=== PATIENT | male | born 1960 | race Caucasian/White ===

== ENCOUNTER 2020-08-13 07:30 | Observation (INO) ==
[2020-08-13] MEDS ORDERED: SODIUM CHLORIDE 0.9% 1000ML 1,000 ML IV ONE (08:05)
[2020-08-13] MEDS ORDERED: OPTIRAY 320 125ml IV ONE (08:12)
[2020-08-13 08:13] LABS: Basophils # (auto) 0.01 K/uL (0-0.2); Basophils % (auto) 0.3 %; Eosinophils # (auto) 0.13 K/uL (0-0.5); Eosinophils % (auto) 3.7 %; Hematocrit (blood only) 41.4 % (42-52); Hemoglobin 14.3 g/dL (14.0-18.0); Lymphocytes # (auto) 1.41 K/uL (1.2-3.4); Lymphocytes % (auto) 39.7 %; Mean Corpuscular Hemoglobin 29.1 pg (25-34); Mean Corpuscular Hgb Conc 34.5 g/dL (32-36); Mean Corpuscular Volume 84.1 fL (80-100); Mean Platelet Volume 9.3 fL (7.4-10.4); Monocytes # (auto) 0.29 K/uL (0.11-0.59); Monocytes % (auto) 8.2 %; Neutrophils # (auto) 1.71 K/uL (1.4-6.5); Neutrophils % (auto) 48.1 %; Platelet Count 193 K/uL (130-400); RDW Coefficient of Variation 15.2 % (11.5-14.5); RDW Standard Deviation 46.8 fL (36.4-46.3); Red Blood Count 4.92 M/uL (4.7-6.1); White Blood Count 3.55 K/uL (4.8-10.8)
[2020-08-13 08:21] LABS: iSTAT Creatinine 0.9 mg/dl (0.6-1.3); iSTAT Hemoglobin 13.9 g/dl (14.0-18.0); iSTAT Ionized Calcium 1.25 mmol/l (1.12-1.32); iSTAT Potassium 3.9 mmol/L (3.3-5.0)
[2020-08-13 08:25] LABS: INR 1.1 (0.9-1.1); Partial Thromboplastin Ratio 1.2; Partial Thromboplastin Time 32.1 Seconds (21.0-31.0); Prothrombin Time 10.7 Seconds (9.0-12.0)
[2020-08-13 08:30] LABS: Alanine Aminotransferase 20 U/L (12-78); Albumin Level 3.6 gm/dl (3.4-5.0); Aspartate Aminotransferase 18 U/L (15-37); BUN Creatinine Ratio 16.2 (10-20); Blood Urea Nitrogen 15 mg/dl (7-18); Calcium 8.7 mg/dl (8.5-10.1); Carbon Dioxide 29 mmol/L (21-32); Chloride 108 mmol/L (98-107); Creatinine Clr Calc Pharmacy 86.9 ml/min; Est GFR (African American) 104.3; Glucose 126 mg/dl (70-99); Magnesium 2.2 mg/dl (1.8-2.4); Potassium 3.9 mmol/L (3.5-5.1); Sodium 141 mmol/L (136-145)
[2020-08-13 08:34] LABS: Albumin Globulin Ratio 1.2 (0.9-2); Alkaline Phosphatase 136 U/L (45-117); Bilirubin,Total 0.5 mg/dl (0.2-1); Globulin 3.1 gm/dl (2.5-4.0); Total Protein 6.7 gm/dl (6.4-8.2); Troponin I < 0.015 ng/ml (0-0.045)
--- NOTE | 2020-08-13 08:37 | CT Scan Report ---
CT head/brain wo con, CT angio head w con, CT angio neck with con CLINICAL HISTORY: 60 years-old Male with Stroke Like Symptoms. Acute strokelike symptoms TECHNIQUE: Multiple axial CT images of the head were obtained without contrast. CTA head and neck was also obtained following the intravenous administration of 120 mL Optiray 320. All measurements were obtained according to NASCET criteria. 3-D coronal and sagittal MIPS were obtained. A dose lowering t echnique was utilized adhering to the principles of ALARA. CT DOSE: 1230.07 mGy.cm COMPARISON: None. FINDINGS: CT HEAD: No acute intracranial hemorrhage, midline shift, intracranial mass, hydrocephalus, territorial ischem ia or abnormal extra-axial collection. Mild age-related involutional changes. Subcentimeter hypodense focus of the inferior left lentiform nucleus suggests prominent perivascular space. The calvarium is intact. The paranasal sinuses, mastoid air cells, and middle ear cavities are clear . CTA HEAD AND NECK: The imaged opacified pulmonary artery is unremarkable. Three-vessel morphology of the thoracic aortic arch. There is patency of the innominate, and imaged subclavian arteries. The common and internal ca rotid arteries are widely patent. No significant atherosclerotic plaque. The middle and anterior cere bral arteries are patent. Hypoplastic left A1 segment, likely developmental. Codominant and widely pa tent vertebral arteries. The basilar and posterior cerebral arteries are also widely patent. No aneur ysm, dissection, high-grade stenosis or proximal branch occlusion. Cerebral venous sinuses are patent . There is no abnormal intracranial enhancement. Lung apices are clear without pneumothorax. Mild bronchial wall thickening. There is no adenopathy. S treak artifact from dental amalgam hardware. Degenerative changes of the cervical spine and sternal m anubrial articulation. IMPRESSION: 1. No acute intracranial abnormality. 2. Unremarkable CTA of the head and neck. ACT 112: Negative or not required by law. The above report was generated using voice recognition software. It may contain grammatical, syntax o r spelling errors. Electronically signed by: Ervin York M.D. 08/13/2020 8:36 AM
--- NOTE | 2020-08-13 08:54 | XRay Report ---
XR chest 1V portable HISTORY: 60 years-old Male Stroke Like Symptoms acute strokelike symptoms COMPARISON: CTA head neck of same day TECHNIQUE: Portable AP view of the chest FINDINGS: Mild asymmetric left hilar prominence may be projectional. Cardiac silhouette is normal. There is no pneumothorax, pleural effusion, airspace consolidation or overt pulmonary edema. The bones of the morgan st appear grossly intact. IMPRESSION: No acute process. ACT 112: Negative or not required by law. The above report was generated using voice recognition software. It may contain grammatical, syntax o r spelling errors. Electronically signed by: Ervin York M.D. 08/13/2020 8:52 AM
[2020-08-13 09:53] LABS: Influenza A virus by PCR Negative (Neg); Influenza B virus by PCR Negative (Neg); RSV by PCR Negative (Neg); SARS CoV2 RNA(COVID-19) InHosp NEGATIVE (Negative)
[2020-08-13 10:14] LABS: Appearance Urine Clear (Clear); Bilirubin Urine Negative (Negative); Blood Urine Negative (Negative); Color Urine Yellow; Glucose Urine UA Negative (Negative); Ketones Urine Negative (Negative); Leukocyte Esterase Urine Negative (Negative); Nitrite Urine Negative (Negative); Protein Urine Negative (Negative); Specific Gravity Urine 1.011 (1.000-1.030); Urobilinogen Urine Negative (Negative); pH Urine 6.5 (4.5-7.5)
[2020-08-13 10:27] LABS: Base Excess VBG 2.2 mEq/L; pH VBG 7.38 (7.36-7.41)
[2020-08-13 10:30] LABS: Amphetamines+Metham, Urine Neg (Neg); Barbiturates, Urine Neg (Neg); Benzodiazepine, Urine Neg (Neg); Cocaine, Urine Neg (Neg); MDMA (Ecstacy), Urine Neg (Neg); Methadone, Urine Neg (Neg); Opiate, Urine Neg (Neg); Phencyclidine, Urine Neg (Neg)
[2020-08-13] MEDS ORDERED: ASPIRIN 81 MG ECTAB PO SCH (10:45)
--- NOTE | 2020-08-13 11:01 | History & Physical Report ---
Date of Service August 13, 2020 Assessment & Plan (1) Acute confusional state: Patient with acute confusion in the morning following night time headache. -DDX- CVA vs. TGA vs. Migraine - MRI brain pending - No history of seizures- will get EEG - Continue ASA - [facility] (2) Headache: Acute ? migraine - No ETOH abuse reported by patient or - Active person, has never had a debilitating headache before - Thiamine 200 mg PO QD - B12, TSH- ordered by neurology already. Thank you - Hydrate History of Present Illness Primary Care Provider: aMi North 60 YOM retired [employer], and is a professor in political sciences, who gets majority of his care at the [facility]. Was brought into the emergency department this morning by his , secondary to memory issues and "not making sense with his answers". Patient went to bed at 2200 last PM secondary to a headache that was located on the top of his head as a dull ache. The patient normally gets these headaches 1-2 times per year and they go away. He did not take anything for this headache except sleep. He got up in the morning and got the paper, and made himself breakfast. When he was going to sit at the table, the patient started asking the , what were all these things on the table and why were they there. She then proceeded to ask him who the president was and who oversaw the elections, he did not know the answers. She brought him to the emergency room where he had a stroke work up performed, to include NIHSS, CT of the head and CTA of the head and neck. These were unremarkable and his NIHSS is 0. The hospitalist service was notified for admission. Patient will be admitted for observation and continued stroke work up and differential. ECHO, neurology consulted. Patient is on no medications. He has a family history of CVA, NE, and aortic aneurysms. Allergies Allergy/AdvReac Type Severity Reaction Status Date / Time No Known Allergies Allergy Unverified 08/13/20 08:45 Home Medications Medication Instructions Recorded Confirmed Type No Known Home Medications 08/13/20 08/13/20 History lisinopril 10 mg PO QAM 30 Days #30 tab 08/14/20 Rx Past Med/Surg History Medical History Medical history non-contributory Family History Father , [place] at 56 and at 86 Coronary heart disease Diabetes Dyslipidemia Heart disease Hypertension Mother Diabetes Dyslipidemia Hypertension Stroke Social History Smoking Status: Never smoker Second Hand Exposure: No; Do You Dip or Chew Tobacco: No; Tobacco Cessation Education Requested by Patient: No Hx Alcohol Use: Yes Alcohol type: beer Hx Substance Use: No Preferred Language: Mohawk Communication Ability: Effective Sausage Tier Required: No Beliefs That Will Affect Care: None Current Living Situation: Spouse Other Information That Helps Us Care for You: No Feels Safe at Home: Yes Safety Concerns: Feels Safe At This Time Assistive Devices: None Review of Systems Review of Systems: REVIEW OF SYSTEMS: Constitutional: No fever, sweats or chills Eyes: No diplopia, no worsening or blurred vision ENT: normal hearing, no trouble swallowing Respiratory: No cough, sputum, dyspnea at rest or on exertion Cardiovascular: No chest pain, tightness or palpitations Abdomen: No pain, nausea, vomiting, diarrhea or constipation Musculoskeletal: No joint pain, calf pain, swelling Neurologic: No weakness, numbness/tingling, or balance problems Psychiatric: No anxiety or depression Skin: No rash or itch Physical Exam Physical Exam: PHYSICAL EXAM: General: awake, alert, no apparent distress Head: Normocephalic, atraumatic ENT: PERRL, EOMI, no pharyngeal exudate, mucous membranes moist Neuro: AAO x 3, speech clear and appropriate, strength intact bilaterally 5/5, sensation intact and equal all extremities and dermatones, no pronator drift Chest: equal rise and fall of the chest, no accessory muscle use, no heaves or thirlls, Clear to auscultation, on room air, Cardiac: Regular rate and rhythm, telelmetry reviewed, skin warm dry, cap refill <3 seconds, peripheral pusles +2 no JVD, no murmur, no JVD, no edema GI: NABS x 4 quadrants, soft, nontender to palpation, no rebound, guarding or tenderness : Spontaneously voiding, no pain, no CVA tenderness, Extremities: Normal inspection, no peripheral edema or erythema, calfs nontender to palpation Psych: Normal mood and affect cits Skin: no rash or erythema Results & Data Results & Data ([facility]) Vital Signs (Past 12 Hours) Vital Signs Temp Pulse Resp BP Pulse Ox 08/13/20 10:31 150/102 H 08/13/20 10:30 21 08/13/20 10:01 67 18 97 08/13/20 10:00 64 14 148/103 H 99 08/13/20 09:31 64 15 98 08/13/20 09:30 63 16 151/94 H 98 08/13/20 09:01 68 20 98 08/13/20 09:00 63 17 153/101 H 99 08/13/20 08:31 70 19 98 08/13/20 08:30 70 14 159/97 H 98 08/13/20 08:22 74 16 98 08/13/20 07:58 73 18 173/110 H 96 08/13/20 07:46 36.3 C L 72 20 164/100 H 99 Laboratory Results Abnormal lab results 08/13/20 08/13/20 08/13/20 Range/Units 08:05 08:05 08:05 WBC 3.55 L (4.8-10.8) K/uL POC Hgb (14.0-18.0) g/dl Hct 41.4 L (42-52) % POC Hct (42-52) % RDW Std Deviation 46.8 H (36.4-46.3) fL RDW Coeff of Manish 15.2 H (11.5-14.5) % APTT 32.1 H (21.0-31.0) Seconds Chloride 108 H (98-107) mmol/L POC Anion Gap (16-25) mmol/L Glucose 126 H (70-99) mg/dl POC Glucose (other) (70-99) mg/dl Alkaline Phosphatase 136 H (45-117) U/L 08/13/20 Range/Units 08:09 WBC (4.8-10.8) K/uL POC Hgb 13.9 L (14.0-18.0) g/dl Hct (42-52) % POC Hct 41 L (42-52) % RDW Std Deviation (36.4-46.3) fL RDW Coeff of Manish (11.5-14.5) % APTT (21.0-31.0) Seconds Chloride (98-107) mmol/L POC Anion Gap 15.0 L (16-25) mmol/L Glucose (70-99) mg/dl POC Glucose (other) 121 H (70-99) mg/dl Alkaline Phosphatase (45-117) U/L Diagnostic Findings XR chest 1V portable HISTORY: 60 years-old Male Stroke Like Symptoms acute strokelike symptoms COMPARISON: CTA head neck of same day TECHNIQUE: Portable AP view of the chest FINDINGS: Mild asymmetric left hilar prominence may be projectional. Cardiac silhouette is normal. There is no pneumothorax, pleural effusion, airspace consolidation or overt pulmonary edema. The bones of the chest appear grossly intact. IMPRESSION: No acute process. CT head/brain wo con, CT angio head w con, CT angio neck with con CLINICAL HISTORY: 60 years-old Male with Stroke Like Symptoms. Acute strokelike symptoms TECHNIQUE: Multiple axial CT images of the head were obtained without contrast. CTA head and neck was also obtained following the intravenous administration of 120 mL Optiray 320. All measurements were obtained according to NASCET criteria. 3-D coronal and sagittal MIPS were obtained. A dose lowering technique was utilized adhering to the principles of ALARA. CT DOSE: 1230.07 mGy.cm COMPARISON: None. FINDINGS: CT HEAD: No acute intracranial hemorrhage, midline shift, intracranial mass, hydrocephalus, territorial ischemia or abnormal extra-axial collection. Mild age-related involutional changes. Subcentimeter hypodense focus of the inferior left lentiform nucleus suggests prominent perivascular space. The calvarium is intact. The paranasal sinuses, mastoid air cells, and middle ear cavities are clear. CTA HEAD AND NECK: The imaged opacified pulmonary artery is unremarkable. Three-vessel morphology of the thoracic aortic arch. There is patency of the innominate, and imaged subclavian arteries. The common and internal carotid arteries are widely patent. No significant atherosclerotic plaque. The middle and anterior cerebral arteries are patent. Hypoplastic left A1 segment, likely developmental. Codominant and widely patent vertebral arteries. The basilar and posterior cerebral arteries are also widely patent. No aneurysm, dissection, high-grade stenosis or proximal branch occlusion. Cerebral venous sinuses are patent. There is no abnormal intracranial enhancement. Lung apices are clear without pneumothorax. Mild bronchial wall thickening. There is no adenopathy. Streak artifact from dental amalgam hardware. Degenerative changes of the cervical spine and sternal manubrial articulation. IMPRESSION: 1. No acute intracranial abnormality. 2. Unremarkable CTA of the head and neck. Medications Administered Discontinued Medications Sodium Chloride (Nss 1000ml) 1,000 mls @ 999 mls/hr IV .Q1H1M ONE Stop: 08/13/20 09:05 Last Infusion: 08/13/20 10:06 Dose: 0 mls/hr Documented by: [id number] Admin: 08/13/20 08:29 Dose: 999 mls/hr Documented by: [id number] Ioversol (Optiray 320 125ml) 120 ml IV ONCE ONE Stop: 08/13/20 08:13 Last Admin: 08/13/20 08:13 Dose: 120 ml Documented by: [id number] Additional Comments: Normal sinus rhythm Normal ECG No previous ECGs available Code Status & VTE Plan Code Status CODE: FULL VTE: Heparin 5000units subq TID VTE Prophylaxis Plan VTE Prophylaxis will be ordered: Yes Supervising Physician Co-Signing Physician Notes I personally saw and examined the patient. I verified all elder points and agree with Davis CHRISTIAN with the following exceptions and/or additions: 60-year-old male with no history of CVA presents to the ER with acute confusional state which has improved throughout the day. The patient was seen in the evening and is now currently back to his baseline.A/P O/E no focal neurology, no sensory deficits, no facial droop, alert and orientated and answering questions appropriately better than earlier in the day. A/P Acute confusional state -agree with completing stroke work-up. Suspect transient global amnesia. Appreciate neurology consult. If stable overnight can likely be discharged tomorrow. PG Care Time/CCT Total # of Minutes Spent Total Time Spent with Patient: Total time spent is greater than 50% in coordination of care (as documented) at patient's floor/unit and/or counseling patient: Coding Level of Care Code 02144 OBS Care - Level 3 Diagnoses Acute confusional state F05 Headache R51.9 Headache chronicity pattern: acute headache Headache type: unspecified Intractability: not intractable (1) Headache Headache chronicity pattern: acute headache Headache type: unspecified Intractability: not intractable Qualified Code(s): R51.9 - Headache, unspecified
[2020-08-13] MEDS ORDERED: ASPIRIN 81 MG CHEW PO ONE (12:35)
[2020-08-13] MEDS ORDERED: ONDANSETRON INJ 2 MG/ML 2 ML VIAL IV PRN (12:35)
[2020-08-13] MEDS ORDERED: POLYETHYLENE (MIRALAX) 17 GM PACK PO PRN (12:35)
[2020-08-13] MEDS ORDERED: PHARMACIST DISCHARGE MED REC CONSULT PRN (12:35)
--- NOTE | 2020-08-13 14:42 | Neurology Consultation ---
Date of Consultation August 13, 2020 Assessment & Plan (1) Acute confusional state: Prasanth Marvin is a 60 yo man w/ no known significant PMH who p/t [facility] with acute onset of confusion and headache. # Acute confusional episode: suggestive of TGA vs HTNsive urgency, less likely NCSE as no abnormality on MRI brain or h/o seizures, no stroke on imaging. Suspect that he may have been on the border between HTNsive urgency and PRES. - routine EEG to complete workup - would give banana bag given unclear history - will check B12, thiamine, TSH (ordered) - [facility] for records from the [place] - would give IVFs, IV tylenol/zofran q8h scheduled for headache x2 doses - SBP goal <160 (would give prn captopril to meet goal and consider starting anti-HTNsive if still high during admission) Thank you for this interesting consult. Plan of care discussed with primary team. Please call or text with questions. (2) Headache: History of Present Illness Attending Physician: Prakash Hannah MD History of Present Illness Prasanth Marvin is a 60 yo man w/ no known significant PMH who p/t [facility] with acute onset of confusion and headache. [employer] the morning of 08/13/20. In the ED, BP 164/100, HR 72, patient afebrile, RR 18, satting 96% on room air. Labs notable for WBCs 3.55, hemoglobin 14.3 with MCV 84.1, platelets 193, INR 1.1, VBG 7.3 8/49/30/28, sodium 141, potassium 3.9, glucose 126, calcium 8.7, phosphorus 3, magnesium 2.2, LFTs within normal except for mildly elevated alkaline phosphatase 136, troponin negative, UA no infection, UDS negative, CO VID negative. Imaging independently reviewed. CTH shows no hemorrhage or hypodensity. CTA H&N shows no LVO, high grade stenosis or aneurysm. MRI brain shows no acute or chronic infarct, tumor, mass lesion or significant atrophy. CXR no infection. On examination, he reports that he went to bed last night around 10 PM in his normal state of health and then woke up this morning around 3:30 AM with a mild headache. Notes that he was making things for breakfast but his thought he was doing odd things. He notes that his asked several questions he answered incorrectly or inappropriately. He denies any loss of consciousness but does note mild amnestic symptoms to the morning. Did have a headache until recently when he was given medication for it. Denies any other neurological symptoms including numbness, tingling, weakness, visual, speech abnormalities, facial droop or seizure-like activity including staring/automatisms/generalized convulsions. He reports that he usually has normal blood pressure and that when told for his blood pressure was this morning it was exceptionally high for him. He does not take any medications regularly or had any underlying health conditions aside from borderline hypertension. Allergies Allergy/AdvReac Type Severity Reaction Status Date / Time No Known Allergies Allergy Unverified 08/13/20 08:45 Home Medications Medication Instructions Recorded Confirmed Type No Known Home Medications 08/13/20 08/13/20 History Patient History Medical History Medical history non-contributory Family History Father , [place] at 56 and at 86 Coronary heart disease Diabetes Dyslipidemia Heart disease Hypertension Mother Diabetes Dyslipidemia Hypertension Stroke Social History Smoking Status: Never smoker Second Hand Exposure: No; Do You Dip or Chew Tobacco: No; Tobacco Cessation Education Requested by Patient: No Hx Alcohol Use: Yes Alcohol type: beer Hx Substance Use: No Preferred Language: Nauruan Communication Ability: Effective Slurry Man Required: No Beliefs That Will Affect Care: None Current Living Situation: Spouse Other Information That Helps Us Care for You: No Feels Safe at Home: Yes Safety Concerns: Feels Safe At This Time Assistive Devices: None Review of Systems Review of Systems: 14 point review of systems completed and negative except as in HPI. Exam (Neuro) Physical Exam: General Exam: GEN: NAD, lying down in examination bed. HEENT: No conjunctival injection, no rhinorrhea. CV: RRR on monitor, no significant edema. PULM: Nonlabored respirations on room air. Neuro Exam: MS: Awake and Alert. Oriented to person, place, and date. Speech fluent and appropriate without dysarthria or paraphasic errors. Language intact including naming, comprehension, repetition. Cognition and memory grossly intact. Attention intact. No neglect. CN: Visual gerber full, + blink to threat bilaterally. No extinction to double simultaneous stimuli. Unable to visualize fundi on fundoscopic exam. PERRLA OU. EOMI without nystagmus. Facial sensation intact to LT. Facial muscles full and symmetric. Hearing intact to finger rub bilaterally. Uvula midline with symmetric palatal elevation. SCMs and shoulder shrug normal. Tongue midline. MOTOR: Normal bulk and tone. No pronator drift. BUE strength 5/5 at deltoids, biceps, triceps, wrist flexors and extensors, and finger flexors bilaterally. BLE strength 5/5 at iliopsoas, hamstrings, quadriceps, tibialis anterior, and gastrocnemius bilaterally. REFLEXES: 1+ at biceps, triceps, brachioradialis, 1+ patella, and Achilles bilaterally. Flexor plantar responses bilaterally. SENSORY: Intact to LT throughout, no extinction to double simultaneous stimuli. Vibration mildly diminished in bilateral lower extremities up to the knees. COORDINATION: No dysmetria or ataxia on [id number] bilaterally. Normal Dionne bilaterally. GAIT: Deferred due to physical status. NIH STROKE SCALE 1A. Level of Consciousness (0-3) = 0 1B. LOC Questions (0-2) = 0 1C. LOC Commands (0-2) = 0 2. Best Horizontal Gaze (0-2) = 0 3. Visual Gerber (0-3) = 0 4. Facial Palsy (0-3) = 0 5. Motor Arm Right (0-4) = 0 Left (0-4) = 0 6. Motor Leg Right (0-4) = 0 Left (0-4) = 0 7. Limb Ataxia (0-2) = 0 8. Sensory (0-2) = 0 9. Best Language (0-3) = 0 10. Dysarthria (0-2) = 0 11. Extinction and Inattention (0-2) = 0 NIHSS TOTAL = 0 Results & Data ([facility]) Vital Signs (Past 12 Hours) Vital Signs Temp Pulse Pulse Resp BP BP Pulse Ox 08/13/20 12:51 36.9 C 61 18 136/87 96 08/13/20 12:30 36.9 C 136/87 08/13/20 11:01 21 08/13/20 11:00 18 141/94 H 08/13/20 10:32 16 08/13/20 10:31 150/102 H 08/13/20 10:30 21 08/13/20 10:01 67 18 97 08/13/20 10:00 64 14 148/103 H 99 08/13/20 09:31 64 15 98 08/13/20 09:30 63 16 151/94 H 98 08/13/20 09:01 68 20 98 08/13/20 09:00 63 17 153/101 H 99 08/13/20 08:31 70 19 98 08/13/20 08:30 70 14 159/97 H 98 08/13/20 08:22 74 16 98 08/13/20 07:58 73 18 173/110 H 96 08/13/20 07:46 36.3 C L 72 20 164/100 H 99 PG Care Time/CCT Total # of Minutes Spent Total Time Spent with Patient: Total time spent is greater than 50% in coordination of care (as documented) at patient's floor/unit and/or counseling patient: 60 Coding Level of Care Code 34304 Office/Outpt Visit, New Diagnoses Acute confusional state F05 Headache R51.9
--- NOTE | 2020-08-13 15:22 | Magnetic Resonance Report ---
MRI OF THE BRAIN WITHOUT IV CONTRAST CLINICAL HISTORY: Strokelike symptoms. Confusion. Headache. COMPARISON STUDY: CT of the brain dated 08/13/2020. TECHNIQUE: MRI of the brain was performed utilizing various T1 and T2-weighted sequences in the axial , sagittal, and coronal planes. IV contrast was not administered for this examination. FINDINGS: Brain parenchyma: The brain parenchyma is normal in appearance. There is no hemorrhage or mass effect . There is no restricted diffusion to suggest acute ischemia. Gutiérrez-white matter differentiation is pr eserved. No extra-axial fluid collection is seen. A prominent perivascular space is incidentally note d in the left basal ganglia. The cerebellar tonsils are normal in configuration. Ventricles, sulci, and cisterns: Normal in configuration. Pituitary and sella: Unremarkable. Intracranial vasculature: Normal flow voids are maintained at the skull base. Orbits: The bony orbits are grossly intact. Orbital contents are normal in appearance. Sinuses and mastoids: Clear. Calvarium: Unremarkable. Cervical cord: Partially visualized cervical spinal cord is normal in morphology and signal intensity . IMPRESSION: No acute intracranial abnormality. ACT 112: Negative or not required by law. Electronically signed by: Ameya Hernandez M.D. 08/13/2020 3:21 PM
--- NOTE | 2020-08-13 16:18 | XCELERA ---
[id number]
[2020-08-13] MEDS ORDERED: ONDANSETRON 4 MG OD TAB PO PRN (17:08)
[2020-08-13] MEDS ORDERED: ACETAMINOPHEN 325 MG TAB PO PRN (17:08)
[2020-08-13] MEDS ORDERED: THIAMINE HCL 100 MG TAB PO ONE (17:14)
--- NOTE | 2020-08-13 17:53 | Emergency Department Note ---
Impression & Plan Stroke-like symptom, Acute confusional state, Headache, Hypertensive urgency ED Provider Note NAME: JIGAR HALL AGE: 60 SEX: M ARRIVES VIA: Walk-In INFORMANT: Patient, ED PROVIDER(S): Jose E Manuel MD CHIEF COMPLAINT: Confusion, stroke-like symptoms. 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 Otherwise they deny any fevers, chills, cough, congestion, GI or symptoms. They deny known COVID-19 exposures. He denies any similar symptoms in the past. No history headaches. The patient is a professor of politics and so the fact that he is unable to name the current present or even the prior president, per the , is very abnormal. They deny any new acute stress in their lives at this time. Stroke alert was activated upon evaluation given the patient's symptoms impact his livelihood however large vessel occlusion was not thought to be likely and telestroke consultation was deferred once CTA results were seen to be normal. On arrival the patient is no acute distress, afebrile, hypertensive 160- 170s/100s and otherwise stable vital signs. Other than mild confusion per HPI he has no focal neurologic deficits. CNII-XII grossly intact. No overt aphasia or dysarthria. 5/5 strength and SILT x 4 extremities. Cerebellar function intact including [id number], alternating palms, [id number]. EKG without overt acute ischemia. CXR negative for acute cardiopulmonary process. WBC 3.5, nonspecific. Hemoglobin and platelets within normal limits. Chemistry without metabolic acidosis. Electrolytes and LFTs unremarkable. Troponin negative/undetectable. TSH within normal limits. UA without convincing evidence of infection. COVID-19 PCR negative. Influenza and RSV PCR also negative. CT of the head and CTA of the head and neck were negative for ICH, ischemia or severe narrowing or occlusion of large vessels. Given the patient's acute mental status changes that are significantly different from the patient's baseline reasonable to admit the patient for further stroke evaluation. The patient and his at the bedside are in agreement. Case was d/w DANIA Lovelace hospitalist who will evaluate the patient for admission. Triage Nursing notes reviewed and agree them. Prior medical records reviewed Vital Signs: reviewed and remarkable for hypertension. Differential diagnosis: Infection, dehydration, metabolic abnormality, hypo/hyperglycemia, electrolyte disturbance, anemia, hypoxia, cardiac sources, intracerebral event, toxicologic, neurologic, as well as other pathologies. ER treatment provided: See below. Diagnostics interpreted by me: ECG: NSR, 67 bpm, no ectopy, no overt ST elevation or depression. Cardiac Monitoring: An order for continuous cardiac monitoring was placed and demonstrated NSR, 67 bpm, no ectopy. Laboratory studies: See below Imaging studies: See below Consultation(s): Case was d/w DANIA Lovelace hospitalist who will evaluate the patient for admission. 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 Otherwise they deny any fevers, chills, cough, congestion, GI or symptoms. They deny known COVID-19 exposures. He denies any similar symptoms in the past. No history headaches. The patient is a professor of politics and so the fact that he is unable to name the current present or even the prior president, per the , is very abnormal. They deny any new acute stress in their lives at this time. Stroke alert was activated upon evaluation given the patient's symptoms impact his livelihood however large vessel occlusion was not thought to be likely and telestroke consultation was deferred once CTA results were seen to be normal. ROS: See above HPI for pertinent positives & negatives. A total of 10 systems reviewed and were otherwise negative. PAST MEDICAL HISTORY:See Below PAST SURGICAL HISTORY:See Below FAMILY HISTORY:See Below SOCIAL HISTORY:See Below HOME MEDICATIONS:See Below ALLERGIES:See Below VITALS:See Below PHYSICAL EXAMINATION: GENERAL: Awake, alert, well-appearing, in no distress HENT: Normocephalic, atraumatic. Oropharynx with dry mucous membranes and othe rwise unremarkable. EYES: Normal conjunctiva. Sclera non-icteric. EOMI. No nystamgus. PEARRL. NECK: Supple. No nuchal rigidity. FROM. No JVD. RESPIRATORY: Clear to auscultation. CARDIAC: Regular rate, normal rhythm. Extremities warm and well perfused. Pulses equal. ABDOMEN: Soft, non-distended. No tenderness to palpation. No rebound or guarding. No masses. RECTAL: Deferred. MUSCULOSKELETAL: Chest examination reveals no tenderness. The back is symmetrical on inspection without obvious abnormality. There is no CVA tenderness to palpation. No joint edema. LOWER EXTREMITIES: Calves are equal size bilaterally and non-tender. No edema. No discoloration. NEURO: CNII-XII grossly intact. No overt aphasia or dysarthria. 5/5 strength and SILT x 4 extremities. Cerebellar function intact including [id number], alternating palms, [id number]. SKIN: No rash or jaundice noted. 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 Beliefs That Will Affect Care: None Current Living Situation: Spouse Other Information That Helps Us Care for You: No Feels Safe at Home: Yes Safety Concerns: Feels Safe At This Time Assistive Devices: None Allergies Allergies Allergy/AdvReac Type Severity Reaction Status Date / Time No Known Allergies Allergy Unverified 08/13/20 08:45 Home Meds Home Medications Medication Instructions Recorded Confirmed No Known Home Medications 08/13/20 08/13/20 Results & Data (ED) Vital Signs Vital Signs - 24 hr 08/13/20 07:46 08/13/20 07:58 08/13/20 08:22 Temperature 36.3 C L Temperature Source Skin Pulse Rate 72 73 74 Pulse Rate from SpO2 Sensor 74 74 Respiratory Rate 20 18 16 Respiratory Effort / Characteristics Non-Labored Spontaneous Respiratory Depth Normal Respiratory Pattern Regular Blood Pressure 164/100 H 173/110 H Blood Pressure Mean 121 131 Pulse Oximetry 99 96 98 Oxygen Delivery Method Room Air Sepsis Recent Fever Within 48 Hours No Sepsis New/Unexplained Change in Mental Status N/A Sepsis Action Taken by Nursing No Action Required 08/13/20 08:30 08/13/20 08:31 08/13/20 09:00 Temperature Temperature Source Pulse Rate 70 70 63 Pulse Rate from SpO2 Sensor 70 69 63 Respiratory Rate 14 19 17 Respiratory Effort / Characteristics Respiratory Depth Respiratory Pattern Blood Pressure 159/97 H 153/101 H Blood Pressure Mean 117 118 Pulse Oximetry 98 98 99 Oxygen Delivery Method Sepsis Recent Fever Within 48 Hours Sepsis New/Unexplained Change in Mental Status Sepsis Action Taken by Nursing 08/13/20 09:01 08/13/20 09:30 08/13/20 09:31 Temperature Temperature Source Pulse Rate 68 63 64 Pulse Rate from SpO2 Sensor 70 64 64 Respiratory Rate 20 16 15 Respiratory Effort / Characteristics Respiratory Depth Respiratory Pattern Blood Pressure 151/94 H Blood Pressure Mean 113 Pulse Oximetry 98 98 98 Oxygen Delivery Method Sepsis Recent Fever Within 48 Hours Sepsis New/Unexplained Change in Mental Status Sepsis Action Taken by Nursing 08/13/20 10:00 08/13/20 10:01 08/13/20 10:30 Temperature Temperature Source Pulse Rate 64 67 Pulse Rate from SpO2 Sensor 65 66 Respiratory Rate 14 18 21 Respiratory Effort / Characteristics Respiratory Depth Respiratory Pattern Blood Pressure 148/103 H Blood Pressure Mean 118 Pulse Oximetry 99 97 Oxygen Delivery Method Sepsis Recent Fever Within 48 Hours Sepsis New/Unexplained Change in Mental Status Sepsis Action Taken by Nursing 08/13/20 10:31 08/13/20 10:32 Temperature Temperature Source Pulse Rate Pulse Rate from SpO2 Sensor Respiratory Rate 16 Respiratory Effort / Characteristics Respiratory Depth Respiratory Pattern Blood Pressure 150/102 H Blood Pressure Mean 118 Pulse Oximetry Oxygen Delivery Method Sepsis Recent Fever Within 48 Hours Sepsis New/Unexplained Change in Mental Status Sepsis Action Taken by Nursing Laboratory Data Attestation: I reviewed the patient's lab results. Result diagrams: 08/13/20 08:05 08/13/20 08:05 Lab Results 08/13/20 08/13/20 08/13/20 Range/Units 08:05 08:05 08:05 WBC 3.55 L (4.8-10.8) K/uL RBC 4.92 (4.7-6.1) M/uL Hgb 14.3 (14.0-18.0) g/dL POC Hgb (14.0-18.0) g/dl Hct 41.4 L (42-52) % POC Hct (42-52) % MCV 84.1 (80-100) fL MCH 29.1 (25-34) pg MCHC 34.5 (32-36) g/dL RDW Std Deviation 46.8 H (36.4-46.3) fL RDW Coeff of Manish 15.2 H (11.5-14.5) % Plt Count 193 (130-400) K/uL MPV 9.3 (7.4-10.4) fL Immature Gran % (Auto) 0.0 % Neut % (Auto) 48.1 % Lymph % (Auto) 39.7 % [place] % (Auto) 8.2 % Eos % (Auto) 3.7 % Baso % (Auto) 0.3 % Neut # (Auto) 1.71 (1.4-6.5) K/uL Lymph # (Auto) 1.41 (1.2-3.4) K/uL [place] # (Auto) 0.29 (0.11-0.59) K/uL Eos # (Auto) 0.13 (0-0.5) K/uL Baso # (Auto) 0.01 (0-0.2) K/uL Immature Gran # (Auto) 0.00 (0.00-0.02) K/uL PT 10.7 (9.0-12.0) Seconds INR 1.1 (0.9-1.1) APTT 32.1 H (21.0-31.0) Seconds PTT Ratio 1.2 VBG pH (7.36-7.41) VBG pCO2 (38-50) mmHg VBG pO2 mmHg VBG HCO3 mmol/L VBG O2 Saturation % VBG Base Excess mEq/L Barometric Pressure mm/Hg POC Sodium (135-144) mmol/L Sodium 141 (136-145) mmol/L POC Potassium (3.3-5.0) mmol/L Potassium 3.9 (3.5-5.1) mmol/L POC Chloride (101-112) mmol/L Chloride 108 H (98-107) mmol/L Carbon Dioxide 29 (21-32) mmol/L POC Total CO2 (24-31) mmol/L Anion Gap 4.0 (3-11) POC Anion Gap (16-25) mmol/L POC BUN (7-18) mg/dl BUN 15 (7-18) mg/dl Creatinine 0.91 (0.6-1.4) mg/dl POC Creatinine (0.6-1.3) mg/dl Est Cr Clr Drug Dosing 86.9 ml/min Est GFR ( Amer) 104.3 Est GFR (Non-Af Amer) 90.0 BUN/Creatinine Ratio 16.2 (10-20) Glucose 126 H (70-99) mg/dl POC Glucose (other) (70-99) mg/dl Calcium 8.7 (8.5-10.1) mg/dl POC Ioniz Calcium Priscilla (1.12-1.32) mmol/l Phosphorus 3.0 (2.5-4.9) mg/dl Magnesium 2.2 (1.8-2.4) mg/dl Total Bilirubin 0.5 (0.2-1) mg/dl AST 18 (15-37) U/L ALT 20 (12-78) U/L Alkaline Phosphatase 136 H (45-117) U/L Troponin I < 0.015 (0-0.045) ng/ml Total Protein 6.7 (6.4-8.2) gm/dl Albumin 3.6 (3.4-5.0) gm/dl Globulin 3.1 (2.5-4.0) gm/dl Albumin/Globulin Ratio 1.2 (0.9-2) Urine Color Urine Appearance (Clear) Urine pH (4.5-7.5) Ur Specific [place] (1.000-1.030) Urine Protein (Negative) Urine Glucose (UA) (Negative) Urine Ketones (Negative) Urine Blood (Negative) Urine Nitrite (Negative) Urine Bilirubin (Negative) Urine Urobilinogen (Negative) Ur Leukocyte Esterase (Negative) Urine Opiates Screen (Neg) Ur Methadone, Qual (Neg) Urine Barbiturates (Neg) Ur Phencyclidine (PCP) (Neg) U Amphetamin/Meth Scrn (Neg) MDMA (Ecstasy) Screen (Neg) U Benzodiazepines Scrn (Neg) Ur Cocaine Metabolite (Neg) U Marijuana (THC) Screen (Neg) COVID-19 Eval Order SARS-CoV-2 (PCR) (Negative) Influenza Type A (PCR) (Neg) Influenza Type B (PCR) (Neg) RSV (RT-PCR) (Neg) 08/13/20 08/13/20 08/13/20 Range/Units 08:09 08:58 08:58 WBC (4.8-10.8) K/uL RBC (4.7-6.1) M/uL Hgb (14.0-18.0) g/dL POC Hgb 13.9 L (14.0-18.0) g/dl Hct (42-52) % POC Hct 41 L (42-52) % MCV (80-100) fL MCH (25-34) pg MCHC (32-36) g/dL RDW Std Deviation (36.4-46.3) fL RDW Coeff of Manish (11.5-14.5) % Plt Count (130-400) K/uL MPV (7.4-10.4) fL Immature Gran % (Auto) % Neut % (Auto) % Lymph % (Auto) % [place] % (Auto) % Eos % (Auto) % Baso % (Auto) % Neut # (Auto) (1.4-6.5) K/uL Lymph # (Auto) (1.2-3.4) K/uL [place] # (Auto) (0.11-0.59) K/uL Eos # (Auto) (0-0.5) K/uL Baso # (Auto) (0-0.2) K/uL Immature Gran # (Auto) (0.00-0.02) K/uL PT (9.0-12.0) Seconds INR (0.9-1.1) APTT (21.0-31.0) Seconds PTT Ratio VBG pH (7.36-7.41) VBG pCO2 (38-50) mmHg VBG pO2 mmHg VBG HCO3 mmol/L VBG O2 Saturation % VBG Base Excess mEq/L Barometric Pressure mm/Hg POC Sodium 141 (135-144) mmol/L Sodium (136-145) mmol/L POC Potassium 3.9 (3.3-5.0) mmol/L Potassium (3.5-5.1) mmol/L POC Chloride 102 (101-112) mmol/L Chloride (98-107) mmol/L Carbon Dioxide (21-32) mmol/L POC Total CO2 28 (24-31) mmol/L Anion Gap (3-11) POC Anion Gap 15.0 L (16-25) mmol/L POC BUN 14 (7-18) mg/dl BUN (7-18) mg/dl Creatinine (0.6-1.4) mg/dl POC Creatinine 0.9 (0.6-1.3) mg/dl Est Cr Clr Drug Dosing ml/min Est GFR ( Amer) Est GFR (Non-Af Amer) BUN/Creatinine Ratio (10-20) Glucose (70-99) mg/dl POC Glucose (other) 121 H (70-99) mg/dl Calcium (8.5-10.1) mg/dl POC Ioniz Calcium Priscilla 1.25 (1.12-1.32) mmol/l Phosphorus (2.5-4.9) mg/dl Magnesium (1.8-2.4) mg/dl Total Bilirubin (0.2-1) mg/dl AST (15-37) U/L ALT (12-78) U/L Alkaline Phosphatase (45-117) U/L Troponin I (0-0.045) ng/ml Total Protein (6.4-8.2) gm/dl Albumin (3.4-5.0) gm/dl Globulin (2.5-4.0) gm/dl Albumin/Globulin Ratio (0.9-2) Urine Color Urine Appearance (Clear) Urine pH (4.5-7.5) Ur Specific [place] (1.000-1.030) Urine Protein (Negative) Urine Glucose (UA) (Negative) Urine Ketones (Negative) Urine Blood (Negative) Urine Nitrite (Negative) Urine Bilirubin (Negative) Urine Urobilinogen (Negative) Ur Leukocyte Esterase (Negative) Urine Opiates Screen (Neg) Ur Methadone, Qual (Neg) Urine Barbiturates (Neg) Ur Phencyclidine (PCP) (Neg) U Amphetamin/Meth Scrn (Neg) MDMA (Ecstasy) Screen (Neg) U Benzodiazepines Scrn (Neg) Ur Cocaine Metabolite (Neg) U Marijuana (THC) Screen (Neg) COVID-[address] CovFluRsv at [facility] SARS-CoV-2 (PCR) NEGATIVE (Negative) Influenza Type A (PCR) Negative (Neg) Influenza Type B (PCR) Negative (Neg) RSV (RT-PCR) Negative (Neg) 08/13/20 08/13/20 08/13/20 Range/Units 10:00 10:00 10:17 WBC (4.8-10.8) K/uL RBC (4.7-6.1) M/uL Hgb (14.0-18.0) g/dL POC Hgb (14.0-18.0) g/dl Hct (42-52) % POC Hct (42-52) % MCV (80-100) fL MCH (25-34) pg MCHC (32-36) g/dL RDW Std Deviation (36.4-46.3) fL RDW Coeff of Manish (11.5-14.5) % Plt Count (130-400) K/uL MPV (7.4-10.4) fL Immature Gran % (Auto) % Neut % (Auto) % Lymph % (Auto) % [place] % (Auto) % Eos % (Auto) % Baso % (Auto) % Neut # (Auto) (1.4-6.5) K/uL Lymph # (Auto) (1.2-3.4) K/uL [place] # (Auto) (0.11-0.59) K/uL Eos # (Auto) (0-0.5) K/uL Baso # (Auto) (0-0.2) K/uL Immature Gran # (Auto) (0.00-0.02) K/uL PT (9.0-12.0) Seconds INR (0.9-1.1) APTT (21.0-31.0) Seconds PTT Ratio VBG pH 7.38 (7.36-7.41) VBG pCO2 49 (38-50) mmHg VBG pO2 30 mmHg VBG HCO3 28 mmol/L VBG O2 Saturation 61.0 % VBG Base Excess 2.2 mEq/L Barometric Pressure 732.7 mm/Hg POC Sodium (135-144) mmol/L Sodium (136-145) mmol/L POC Potassium (3.3-5.0) mmol/L Potassium (3.5-5.1) mmol/L POC Chloride (101-112) mmol/L Chloride (98-107) mmol/L Carbon Dioxide (21-32) mmol/L POC Total CO2 (24-31) mmol/L Anion Gap (3-11) POC Anion Gap (16-25) mmol/L POC BUN (7-18) mg/dl BUN (7-18) mg/dl Creatinine (0.6-1.4) mg/dl POC Creatinine (0.6-1.3) mg/dl Est Cr Clr Drug Dosing ml/min Est GFR ( Amer) Est GFR (Non-Af Amer) BUN/Creatinine Ratio (10-20) Glucose (70-99) mg/dl POC Glucose (other) (70-99) mg/dl Calcium (8.5-10.1) mg/dl POC Ioniz Calcium Priscilla (1.12-1.32) mmol/l Phosphorus (2.5-4.9) mg/dl Magnesium (1.8-2.4) mg/dl Total Bilirubin (0.2-1) mg/dl AST (15-37) U/L ALT (12-78) U/L Alkaline Phosphatase (45-117) U/L Troponin I (0-0.045) ng/ml Total Protein (6.4-8.2) gm/dl Albumin (3.4-5.0) gm/dl Globulin (2.5-4.0) gm/dl Albumin/Globulin Ratio (0.9-2) Urine Color Yellow Urine Appearance Clear (Clear) Urine pH 6.5 (4.5-7.5) Ur Specific [place] 1.011 (1.000-1.030) Urine Protein Negative (Negative) Urine Glucose (UA) Negative (Negative) Urine Ketones Negative (Negative) Urine Blood Negative (Negative) Urine Nitrite Negative (Negative) Urine Bilirubin Negative (Negative) Urine Urobilinogen Negative (Negative) Ur Leukocyte Esterase Negative (Negative) Urine Opiates Screen Neg (Neg) Ur Methadone, Qual Neg (Neg) Urine Barbiturates Neg (Neg) Ur Phencyclidine (PCP) Neg (Neg) U Amphetamin/Meth Scrn Neg (Neg) MDMA (Ecstasy) Screen Neg (Neg) U Benzodiazepines Scrn Neg (Neg) Ur Cocaine Metabolite Neg (Neg) U Marijuana (THC) Screen Neg (Neg) COVID-19 Eval Order SARS-CoV-2 (PCR) (Negative) Influenza Type A (PCR) (Neg) Influenza Type B (PCR) (Neg) RSV (RT-PCR) (Neg) Administered Medications Lactated Ringer's (Lr) 1,000 mls @ 80 mls/hr IV .[id number] Stop: 09/12/20 17:14 Last Admin: 08/13/20 18:24 Dose: 80 mls/hr Documented by: [id number] Discontinued Medications Aspirin (Aspirin 81 Mg Chew) 324 mg PO NOW ONE Stop: 08/13/20 12:36 Last Admin: 08/13/20 15:41 Dose: 324 mg Documented by: [id number] Sodium Chloride (Nss 1000ml) 1,000 mls @ 999 mls/hr IV .[id number] ONE Stop: 08/13/20 09:05 Last Infusion: 08/13/20 10:06 Dose: 0 mls/hr Documented by: [id number] Admin: 08/13/20 08:29 Dose: 999 mls/hr Documented by: [id number] Ioversol (Optiray 320 125ml) 120 ml IV ONCE ONE Stop: 08/13/20 08:13 Last Admin: 08/13/20 08:13 Dose: 120 ml Documented by: [id number] Thiamine HCl (Thiamine Hcl 100 Mg Tab) 200 mg PO NOW ONE Stop: 08/13/20 17:15 Last Admin: 08/13/20 18:24 Dose: 200 mg Documented by: [id number] Imaging Data Radiologist's Impression: Brain MRI 08/13/20 10:34 MRI OF THE BRAIN WITHOUT IV CONTRAST CLINICAL HISTORY: Strokelike symptoms. Confusion. Headache. COMPARISON STUDY: CT of the brain dated 08/13/2020. TECHNIQUE: MRI of the brain was performed utilizing various T1 and T2-weighted sequences in the axial, sagittal, and coronal planes. IV contrast was not administered for this examination. FINDINGS: Brain parenchyma: The brain parenchyma is normal in appearance. There is no hemorrhage or mass effect. There is no restricted diffusion to suggest acute ischemia. Gutiérrez-white matter differentiation is preserved. No extra-axial fluid collection is seen. A prominent perivascular space is incidentally noted in the left basal ganglia. The cerebellar tonsils are normal in configuration. Ventricles, sulci, and cisterns: Normal in configuration. Pituitary and sella: Unremarkable. Intracranial vasculature: Normal flow voids are maintained at the skull base. Orbits: The bony orbits are grossly intact. Orbital contents are normal in appearance. Sinuses and mastoids: Clear. Calvarium: Unremarkable. Cervical cord: Partially visualized cervical spinal cord is normal in morphology and signal intensity. IMPRESSION: No acute intracranial abnormality. ACT 112: Negative or not required by law. Electronically signed by: Ameya Hernandez M.D. 08/13/2020 3:21 PM Discharge Plan Visit Data Chief Complaint: Confusion Stated Complaint: WOKE UP THIS MORNING CONFUSED-HEADACHE LAST NIGHT ED Provider: Jose E Manuel Discharge Problem: Stroke-like symptom, Acute confusional state, Headache, Hypertensive urgency Patient Disposition: Admitted As Inpatient Discharge Instructions Interventions: ED Discharge Assessment Last Done: 08/13/20 11:25 Discharge Problem: Headache Qualifiers: Headache type: unspecified Headache chronicity pattern: unspecified pattern Intractability: not intractable Qualified Code(s): R51.9 - Headache, unspecified
[2020-08-13] MEDS: LACTATED RINGER'S 1,000 ML IV SCH (18:24)
[2020-08-13] MEDS: HEPARIN SOD 5,000 UNIT/0.5 ML VIAL SQ SCH (21:42)
[2020-08-14] MEDS: HEPARIN SOD 5,000 UNIT/0.5 ML VIAL SQ SCH (05:32)
[2020-08-14] MEDS: LACTATED RINGER'S 1,000 ML IV SCH (05:33)
--- NOTE | 2020-08-14 06:07 | Electrocardiogram Report ---
Test Reason : Blood Pressure : / mmHG Vent. Rate : 067 BPM Atrial Rate : 067 BPM P-R Int : 174 ms QRS Dur : 102 ms QT Int : 394 ms P-R-T Axes : 057 -08 021 degrees QTc Int : 416 ms Normal sinus rhythm Normal ECG No previous ECGs available Confirmed by Angel Melendez ([id number]) on 08/14/2020 6:06:49 AM Referred By: Confirmed By:Angel Melendez
[2020-08-14 07:03] LABS: Basophils # (auto) 0.01 K/uL (0-0.2); Basophils % (auto) 0.2 %; Eosinophils % (auto) 2.4 %; Hematocrit (blood only) 41.1 % (42-52); Hemoglobin 13.9 g/dL (14.0-18.0); Lymphocytes # (auto) 1.53 K/uL (1.2-3.4); Lymphocytes % (auto) 36.3 %; Mean Corpuscular Hemoglobin 28.5 pg (25-34); Mean Corpuscular Hgb Conc 33.8 g/dL (32-36); Mean Corpuscular Volume 84.2 fL (80-100); Mean Platelet Volume 9.6 fL (7.4-10.4); Monocytes # (auto) 0.37 K/uL (0.11-0.59); Monocytes % (auto) 8.8 %; Neutrophils % (auto) 52.3 %; Platelet Count 170 K/uL (130-400); RDW Standard Deviation 46.1 fL (36.4-46.3); Red Blood Count 4.88 M/uL (4.7-6.1); White Blood Count 4.21 K/uL (4.8-10.8)
[2020-08-14 07:28] LABS: BUN Creatinine Ratio 11.6 (10-20); Calcium 8.6 mg/dl (8.5-10.1); Creatinine Clr Calc Pharmacy 94.1 ml/min; Est GFR (African American) 108.8; Est GFR (Non-African American) 93.8; Potassium 3.5 mmol/L (3.5-5.1)
[2020-08-14 08:27] LABS: Estimated Average Glucose 105 mg/dl; Hemoglobin A1C 5.3 % (4.5-5.6)
[2020-08-14 08:56] LABS: Lyme Ab IgG w/WB Rflx Negative (Negative); Lyme Ab IgM w/WB Rflx Negative (Negative)
[2020-08-14] MEDS ORDERED: lisinopril 10 MG TAB PO SCH (09:00)
[2020-08-14] MEDS ORDERED: THIAMINE HCL 100 MG TAB PO SCH (09:00)
[2020-08-14] MEDS ORDERED: STROKE PATIENT DISCHARGE STA (10:17)
--- NOTE | 2020-08-14 10:18 | Discharge Summary ---
Date of Service August 14, 2020 Admission HPI Per Admitting Provider 60 YOM retired [employer], and is a professor in political sciences, who gets majority of his care at the [facility]. Was brought into the emergency department this morning by his , secondary to memory issues and "not making sense with his answers". Patient went to bed at 2200 last PM secondary to a headache that was located on the top of his head as a dull ache. The patient normally gets these headaches 1-2 times per year and they go away. He did not take anything for this headache except sleep. He got up in the morning and got the paper, and made himself breakfast. When he was going to sit at the table, the patient started asking the , what were all these things on the table and why were they there. She then proceeded to ask him who the president was and who oversaw the elections, he did not know the answers. She brought him to the emergency room where he had a stroke work up performed, to include NIHSS, CT of the head and CTA of the head and neck. These were unremarkable and his NIHSS is 0. The hospitalist service was notified for admission. Patient will be admitted for observation and continued stroke work up and differential. ECHO, neurology consulted. Patient is on no medications. He has a family history of CVA, MT, and aortic aneurysms. Principal Diagnosis Confusion, likely hypertensive urgency Discharge Exam Constitutional WD/WN, vitals as above Eyes PERRL, conjunctivae normal, anicteric sclerae ENMT external ear and nose normal, oropharynx normal Neck trachea midline, no thyromegaly Respiratory normal respiratory effort, lungs clear to auscultation Cardiovascular RRR, no murmur, no edema Gastrointestinal (Abdomen) normal bowel sounds, soft, nontender, no hepatosplenomegaly Musculoskeletal no cyanosis or clubbing, extremities motor strength 5/5 Skin no rashes, warm and dry Neurologic patellar DTR's 2+ bilat, sensation intact and PERRL, EOMI, accommodation nl, no face palsy, no dysarthria Psychiatric A+Ox3, euthymic affect Lymphatic no cervical or axillary lymphadenopathy Discharge Data Allergies Allergy/AdvReac Type Severity Reaction Status Date / Time No Known Allergies Allergy Unverified 08/13/20 08:45 Consultations 08/13/20 09:32 ED Decision to Admit Stat 08/13/20 12:35 Consult Neurology Routine 08/13/20 19:34 Consult Health Information Management Routine Ordered Studies 08/13/20 08:05 CT angio head w con Stat CT angio neck with con Stat CT head/brain wo con Stat 08/13/20 10:34 MR brain wo con Routine Hospital Course (1) Acute confusional state: Patient with acute confusion in the morning following night time headache BP noted to be elevated on admission evaluated by neurology symptoms of confusion completely resolved prior to arrival in the ED and no further symptoms Acute confusional state, elevated blood pressure NO EVIDENCE OF STROKE ON MRI OF THE BRAIN differential includes hypertensive urgency, transient global amnesia, seizure started on Lisinopril 10mg daily to control blood pressure follow low salt diet, get regular exercise 5x a week for 30 minutes other labs: Lyme screen NEGATIVE HbA1c 5.3% LDL (bad cholesterol) was 73 Vitamin B12 and thyroid testing normal follow up closely with PCP for blood pressure check in the office, might need to increase Lisinopril (2) Headache: Acute ? migraine - No ETOH abuse reported by patient or - Active person, has never had a debilitating headache before - Thiamine 200 mg PO QD - headache completely resolved Total Time Total Time Spent Total Time Spent (In Minutes): 35 Total Time Includes: Examination of the Patient, Discharge Planning, Medication Reconciliation, Communication With Other Providers (Dr. Gerard) and Other (spoke with his over the phone) Discharge Plan Discharge Items Patient Disposition: Home - Self-Care Reason For Visit: RULE OUT STROKE Discharge Diagnosis: Confusion Hypertensive urgency episode Condition on Discharge: Good Goals: control blood pressure with Lisinopril Activity: Resume your previous activity Non-emergency contact: Primary Care Provider Call non-emergency contact if: you have any medication questions Follow-up/Referrals: Mai North PA-C [Primary Care Provider] - (one week) Diet: Low Sodium (2gm) Addtl Attending Provider Instructions: Medications: - LISINOPRIL: 10mg daily, starting dose, you may require higher dose after follow up with PCP as we discussed, main side effect is a dry cough, notify your PCP if you experience this - ASPIRIN: defer to you on taking baby aspirin, certainly no harm in taking this if you can tolerate, would only offer future protection from stroke, heart attack Acute confusional state, elevated blood pressure NO EVIDENCE OF STROKE ON MRI OF THE BRAIN differential includes hypertensive urgency, transient global amnesia, seizure symptoms resolved recommend you take Lisinopril to control blood pressure follow low salt diet, get regular exercise 5x a week for 30 minutes other labs: Lyme screen NEGATIVE HbA1c 5.3%, thus you do not have diabetes LDL (bad cholesterol) was 73 which is excellent Vitamin B12 and thyroid testing normal Pending Studies at Discharge: Yes Studies:: EEG, will contact if abnormal thiamine level, very highly unlikely this would be low Stand-Alone Forms: Medications to Prevent Stroke, My [facility] [employer] Smoking Cessation Medications and DC Order Prescriptions: New aspirin 81 mg Tablet,Delayed Release (Dr/Ec) 81 mg PO QAM 30 Days Qty: 30 RF: 3 lisinopril 10 mg Tablet 10 mg PO QAM 30 Days Qty: 30 RF: 1 Discharge Orders: Discharge Order (Routine); Ordered 08/14/20 Ordered By: Nico Silver Admission Data Admit Date/Time: 08/13/20 10:50 Attending Provider: Nico Silver Admit Provider: Prakash Hannah Primary Care Provider: Mai North Other Providers: Darrius Barragan ; Alee Gerard Other Interventions: Discharge Summary Assessment (RN) Last Done: 08/14/20 10:44 Coding Level of Care Code 08345 OBS Care - Discharge Diagnoses Acute confusional state F05 Headache R51.9 Headache chronicity pattern: unspecified pattern Headache type: unspecified Intractability: not intractable
--- NOTE | 2020-08-14 16:04 | Electroencephalogram ---
EEG Procedure Note Date of Service August 14, 2020 Start / End Times Start Time: 5:58am End Time: 6:16am Referring Physician dahlia gerard History acute confusional state, r/o ncse Home Medication List Medication Instructions Recorded Confirmed Type aspirin 81 mg PO QAM 30 Days #30 tab 08/14/20 Rx lisinopril 10 mg PO QAM 30 Days #30 tab 08/14/20 Rx Inpatient Medication List Discontinued Medications Aspirin (Aspirin 81 Mg Ectab) 81 mg PO QAM JAYA Stop: 09/12/20 10:44 Last Admin: 08/14/20 08:02 Dose: 81 mg Documented by: [id number] Aspirin (Aspirin 81 Mg Chew) 324 mg PO NOW ONE Stop: 08/13/20 12:36 Last Admin: 08/13/20 15:41 Dose: 324 mg Documented by: [id number] Heparin Sodium (Porcine) (Heparin Sod 5,000 Unit/0.5 Ml Vial) 5,000 units SQ Q8 JAYA Stop: 09/12/20 21:59 Last Admin: 08/14/20 05:32 Dose: 5,000 units Documented by: [id number] Admin: 08/13/20 21:42 Dose: 5,000 units Documented by: [id number] Sodium Chloride (Nss 1000ml) 1,000 mls @ 999 mls/hr IV .Q1H1M ONE Stop: 08/13/20 09:05 Last Infusion: 08/13/20 10:06 Dose: 0 mls/hr Documented by: [id number] Admin: 08/13/20 08:29 Dose: 999 mls/hr Documented by: [id number] Lactated Ringer's (Lr) 1,000 mls @ 80 mls/hr IV .[id number] JAYA Stop: 09/12/20 17:14 Last Admin: 08/14/20 05:33 Dose: 80 mls/hr Documented by: [id number] Infusion: 08/14/20 05:33 Dose: 80 mls/hr Documented by: [id number] Admin: 08/13/20 18:24 Dose: 80 mls/hr Documented by: [id number] Ioversol (Optiray 320 125ml) 120 ml IV ONCE ONE Stop: 08/13/20 08:13 Last Admin: 08/13/20 08:13 Dose: 120 ml Documented by: [id number] Lisinopril (Lisinopril 10 Mg Tab) 10 mg PO QAM [facility] Stop: 09/13/20 08:59 Last Admin: 08/14/20 08:03 Dose: 10 mg Documented by: [id number] Thiamine HCl (Thiamine Hcl 100 Mg Tab) 200 mg PO QAM [facility] Stop: 09/13/20 08:59 Last Admin: 08/14/20 08:02 Dose: 200 mg Documented by: [id number] Thiamine HCl (Thiamine Hcl 100 Mg Tab) 200 mg PO NOW ONE Stop: 08/13/20 17:15 Last Admin: 08/13/20 18:24 Dose: 200 mg Documented by: [id number] Description This is a 21 electrode EEG with a single channel dedicated to limited EKG. The electrodes were placed in accordance with the International 10-20 system. History: AMS, confusion Rx: none Start/Stop: 5:58am/6:16am Attending reading: Dahlia Gerard EEG Description: EEG background: Background was symmetric alpha rhythm. A well formed 9-10 Hz posterior dominant rhythm was observed. The EEG is continuous. There is variability and reactivity present. Activation and reactivity: Photic stimulation performed without any abnormalities noted. No photic driving observed. Hyperventilation was not performed. Sleep: No sleep architecture noted Epileptiform discharges: No epileptiform discharges were observed. Rhythmic and periodic patterns: None Seizures: None Impression: This was a normal awake EEG. No seizures or epileptiform discharges were seen. Clinical correlation required. [facility] EEG Procedure Codes Indication for Procedure (1) Hypertensive urgency: (2) Acute confusional state: Neurology Neurology: [id number] EEG include record awake & drowsy
== END 2020-08-14 11:10 | disposition home or self-care (01) ==
LOC: 2N 07:30 → ED 07:30 → SUATTDRO 10:50 → 2N 11:25

== ENCOUNTER 2023-08-25 10:43 | Observation (INO) ==
[2023-08-25] MEDS: OPTIRAY 320 125ml IV ONE (11:07)
--- NOTE | 2023-08-25 11:20 | CT Scan Report ---
CT OF THE HEAD WITHOUT CONTRAST CLINICAL HISTORY: Neuro deficit, acute, stroke suspected. Confusion. COMPARISON STUDY: Head CT, CTA of the head and MRI of the brain August 13, 2020. CT DOSE: 1135.32 mGy.cm TECHNIQUE: Helical axial images of the head were obtained without IV contrast. Automated exposure con trol was utilized for the study. A dose lowering technique was utilized adhering to the principles o f ALARA. FINDINGS: No acute intracranial hemorrhage, midline shift or mass effect is present. The ventricular system is unremarkable. The basal cisterns are patent. No extra-axial collections are present. There are no findings to suggest acute dural sinus thrombosis or acute territorial infarct. No significant calvarial abnormalities are present. A small hypodensity within the left basal ganglia is unchanged. IMPRESSION: No acute intracranial findings. ACT 112: Negative or not required by law. Electronically signed by: Juan Ortiz M.D. 08/25/2023 11:19 AM
[2023-08-25 11:29] LABS: Hematocrit (blood only) 44.4 % (42.0-52.0); Mean Corpuscular Hemoglobin 29.4 pg (25.0-34.0); Mean Corpuscular Hgb Conc 33.8 g/dL (32.0-36.0); Mean Corpuscular Volume 86.9 fL (80.0-100.0); Mean Platelet Volume 9.4 fL (9.4-12.4); Platelet Count 217 K/uL (130-400); RDW Coefficient of Variation 13.9 % (11.5-14.5); RDW Standard Deviation 44.3 fL (36.4-46.3); Red Blood Count 5.11 M/uL (4.70-6.10); White Blood Count 4.57 K/ul (4.8-10.8)
[2023-08-25 11:43] LABS: Partial Thromboplastin Time 29 Seconds (21-31); Prothrombin Time 11.3 Seconds (9.0-12.0)
[2023-08-25 11:51] LABS: Est GFR (African American) 100.8 ml/min; Potassium 4.5 mmol/L (3.5-5.1)
[2023-08-25 11:52] LABS: Albumin Globulin Ratio 1.5 (0.9-2); Albumin Level 4.2 gm/dl (3.4-5.0); Bilirubin,Total 0.5 mg/dl (0.2-1.0); Calcium 9.7 mg/dl (8.6-10.3); Creatinine Clr Calc Pharmacy 85.3 ml/min; Globulin 2.8 gm/dl (2.5-4.0); Magnesium 2.1 mg/dl (1.7-2.4)
--- NOTE | 2023-08-25 12:14 | CT Scan Report ---
HEAD CTA HISTORY: stroke like symptoms TECHNIQUE: Multiaxial CT images of the head were performed both before and after the intravenous admi nistration of contrast to evaluate the major cerebral vessels. 3D/MIP images were also obtained. Sag ittal and coronal reformats were reviewed. A dose lowering technique was utilized adhering to the benito [place]. COMPARISON: None. FINDINGS: There is no mass, hematoma, midline shift, or acute infarct. Visualized intracranial pr internship al carotid arteries, distal vertebral arteries, and basilar artery are widely patent. There is no sig nificant stenosis, occlusion, or aneurysm seen within the bilateral ACAs, MCAs, or nailer hand. The major du ral venous sinuses are patent. IMPRESSION: No significant stenosis, occlusion, or aneurysm within the [place] of [place]. ACT 112: Negative or not required by law. Electronically signed by: Julio Cesar Morales M.D. 08/25/2023 12:11 PM
--- NOTE | 2023-08-25 12:33 | CT Scan Report ---
CT angio neck with con CLINICAL HISTORY: 63 years-old Male with stroke like symptoms. Acute strokelike symptoms COMPARISON STUDY: 08/13/2020 TECHNIQUE: Following the IV administration of 120 mL of Optiray, CT angiogram of the neck was perform ed from the aortic arch to the skull base. Images are reviewed in the axial, sagittal, and coronal pl anes. 3-D MIPS images are created and assessed. IV contrast was administered without complication. Al l measurements were calculated based on NASCET criteria. A dose lowering technique was utilized adhe ring to the principles of ALARA. FINDINGS: The imaged opacified pulmonary artery is unremarkable. Three-vessel morphology of the thoracic aortic arch. There is patency of the innominate, and imaged subclavian arteries. The common and internal ca rotid arteries are widely patent. No significant atherosclerotic plaque. The basilar and posterior ce rebral arteries are also widely patent. No aneurysm, dissection, high-grade stenosis or proximal bran ch occlusion. Cerebral venous sinuses are patent. There is no abnormal intracranial enhancement. Lung apices are clear without pneumothorax. There is no adenopathy. Streak artifact from dental amalg am hardware. Degenerative changes of the cervical spine and sternal manubrial articulation. IMPRESSION:Unremarkable CTA of the neck. ACT 112: Negative or not required by law. The above report was generated using voice recognition software. It may contain grammatical, syntax o r spelling errors. Electronically signed by: Lanre York M.D. 08/25/2023 12:31 PM
--- NOTE | 2023-08-25 12:53 | Magnetic Resonance Report ---
MRI OF THE BRAIN WITHOUT CONTRAST CLINICAL HISTORY: stroke alert, acute memory loss, TGA COMPARISON STUDY: Head CT and CTA of the head performed earlier today. TECHNIQUE: Utilizing a 1.5 Yasmeen magnet and dedicated coil, multiplanar, multiecho imaging of the bra in was performed without IV contrast. FINDINGS: There are no foci of restricted diffusion to suggest acute infarct. No acute intracranial h emorrhage, midline shift or mass effect is present. Ventricular system is unremarkable. Basal cistern s are patent. There are no extra-axial collections. Flow-voids for the major intracranial vessels are present. No parenchymal signal abnormality is identified. There is minimal ethmoid sinus mucosal thi ckening. IMPRESSION: No acute intracranial findings. No evidence for acute infarct. ACT 112: Negative or not required by law. Electronically signed by: Juan Ortiz M.D. 08/25/2023 12:51 PM
--- NOTE | 2023-08-25 13:03 | XRay Report ---
XR chest 1V portable CLINICAL HISTORY: stroke alert COMPARISON STUDY: Chest radiograph August 13, 2020. FINDINGS: Lung volumes are normal. Lungs are clear. There is no pneumothorax or pleural effusion. Car diac size is normal. Mediastinal contours are normal. There is no evidence for pulmonary edema. IMPRESSION: No acute cardiopulmonary findings. ACT 112: Negative or not required by law. Electronically signed by: Juan Ortiz M.D. 08/25/2023 1:02 PM
--- NOTE | 2023-08-25 14:17 | History & Physical Report ---
Date of Service August 25, 2023 Assessment & Plan (1) TGA (transient global amnesia): Plan: - Abrupt onset ~10am. Resolving, no focal deficits on exam - TNKase not recommended after initial stroke alert/eval - CT-H, CTA, MRI without acute findings - NO infectious or metabolic derangements. No hx substance or etoh use - Suspected second episode of TGA. Neurology consulted - Supportive care Plan DVT PPx: Lovenox Dispo: MT CODE Full Diet HH History of Present Illness Primary Care Provider: Mai Willson PA-C Prasanth is a 63-year-old male with a past medical history of TGA in 2020 who presents as a stroke alert when he was walking downtown with his and suddenly became disoriented and confused, not making sense with answers, and appeared not understand where he was. He did not have any focal neurologic deficits, no weakness/numbness/tingling, no facial droop, no expressive aphasia, no receptive aphasia. Patient was confused at where he was, and how he got there. Brain MRI showed no acute findings and no stroke, CTA of the head and neck did not show any acute findings, CT of the head was normal. Case was reviewed with telestroke neurology given that patient had no focal deficits was suspected that this was likely TGA and while TNKase was discussed ultimately felt that this was not indicated due to risk/benefit ratio with TGA being the more likely etiology, NT case was not recommended. Patient was admitted for observation. Neurology consulted. At time of bedside assessment patient's blood pressure is adequately controlled, no tachycardia, is not hypoxic. No infectious symptoms. BMP/CBC unremarkable Prasanth is seen with his Teri at the bedside. They report this episode was extremely similar to his episode in 2020. When they were walking he seemed normal, had a work meeting this morning which she was engaged in, but then when he was walking down the road suddenly became confused about where he was and could not remember the events preceding the morning. At time of hospitalist assessment he feels his memory is actually coming back to him and he can now remember his work meeting, and some of his trip to the [facility] but does not remember all of the events since 52000:00 in the morning. Denies lightheadedness, dizziness, syncope, presyncope. No numbness or tingling. No focal neurologic deficits. No chest pain. No flulike symptoms, has had some allergies with a runny nose and notes that is interesting that his episode happened around the same time last year. Did discuss TNKase as noted above, he and his are in agreement that they do not feel the benefits of this for the low risk of stroke outweigh the risks, especially with this likely being a recurrent episode of TGA. No other questions or concerns at bedside. No alcohol/substance use Medical History: Reviewed Medications: Reviewed Surgical History: Reviewed Family history: Reviewed Allergies: Reviewed Social History:Reviewed Code Status: Full Allergies Allergy/AdvReac Type Severity Reaction Status Date / Time No Known Allergies Allergy Unverified 08/13/20 08:45 Home Medications Medication Instructions Recorded Confirmed Type aspirin 81 mg tablet,delayed 81 mg PO QAM 30 days #30 tabs 08/14/20 08/25/23 Rx release cetirizine 5 mg tablet 5 mg PO DAILY 08/25/23 08/25/23 History lisinopril 10 mg tablet 0 mg PO QAM 08/25/23 08/25/23 History multivitamin 1 tab PO DAILY 08/25/23 08/25/23 History sildenafil 100 mg tablet 100 mg PO UD PRN Other 08/25/23 08/25/23 History Past Med/Surg History Medical History HTN (hypertension) TGA (transient global amnesia) Hypertensive urgency Stroke-like symptom Headache Acute confusional state Medical history non-contributory Family History Father , [place] at 56 and at 86 Coronary heart disease Diabetes Dyslipidemia Heart disease Hypertension Mother Diabetes Dyslipidemia Hypertension Stroke Social History Smoking Status: Never smoker Second Hand Exposure: No; Do You Dip or Chew Tobacco: No; Hx Alcohol Use: Yes Alcohol type: beer Hx Substance Use: No Preferred Language: Swazi Communication Ability: Effective Community Health Nurse Supervisor Required: No Beliefs That Will Affect Care: Scientologist Scientologist Beliefs: [facility] Current Living Situation: Spouse Feels Safe at Home: Yes Assistive Devices: None Physical Exam Physical Exam: General: A&Ox3. NAD. Cooperative. Limited memory of morning events HEENT: Atraumatic, normocephalic. PERLAA. Eom intact. vision /hearing grossly intact without deficit. No facial numbness or asymmetry. tongue protrudes midline Pulm: CTAB A&P. -wheezes, -rales, -rhonchi. Symmetrical chest rise. No increased work of breathing. No respiratory distress. Cardiac: RRR, -mrg. Radial pulses intact and symmetrical. Abdominal: Nontender, nondistended, soft. BS present. Extremities: Extremities warm, dry. Sensation intact in hands and feet without asymmetry. Burglar Alarm Installer strength, elbow flexion, shoulder flexion, hip flexion, ankle dorsi/plantarflexion intact 5/5 without asymmetry. PT/radial pulses intact and symmetrical. Results & Data Results & Data Vital Signs (Past 12 Hours) Vital Signs Temp Pulse Resp BP Pulse Ox O2 Del Method 08/25/23 14:00 73 13 144/88 H 99 Room Air 08/25/23 13:45 71 12 141/89 H 97 Room Air 08/25/23 13:30 74 12 146/92 H 98 Room Air 08/25/23 13:15 76 17 156/95 H 98 Room Air 08/25/23 13:00 77 15 146/83 H 97 Room Air 08/25/23 12:45 68 13 131/86 99 Room Air 08/25/23 12:38 69 19 139/114 H 97 Room Air 08/25/23 12:00 77 17 163/101 H 98 Room Air 08/25/23 11:45 75 17 148/98 H 98 Room Air 08/25/23 11:45 72 08/25/23 11:37 74 14 99 Room Air 08/25/23 11:34 16 148/105 H 99 Room Air 08/25/23 10:54 36.6 C 79 20 151/105 H 99 Room Air PG Care Time/CCT Total # of Minutes Spent Total Time Spent with Patient: Total time spent is greater than 50% in coordination of care (as documented) at patient's floor/unit and/or counseling patient: Coding Level of Care Code 58507 INT INP/OBS CARE 3/75MIN Diagnoses TGA (transient global amnesia) G45.4
--- NOTE | 2023-08-25 15:39 | Emergency Department Note ---
Impression & Plan TGA (transient global amnesia), HTN (hypertension) ED Provider Note NAME: JIGAR HALL AGE: 63 SEX: Male INFORMANT: Patient ED PROVIDER(S): Nehemias Aviles MD CHIEF COMPLAINT: Confusion PLAN: Disposition: Admitted Outpatient prescription management: none Referral: None MEDICAL DECISION MAKING: Patient presented with a period of amnesia. A workup was initiated. Stroke alert was done. The patient went for emergent CT imaging. Thankfully CT imaging was negative. Patient had a nonfocal examination. Seems consistent with a TGA episode. I did consult with Dr. Winslow of telestroke. He did evaluate the patient. He did discuss risks and benefits with TNK with the patient and . I did meet with him as well. Options were discussed with proceeding with the TNK versus proceeding to MRI. After discussion of risks and benefits patient and elected for the MR imaging. MR imaging was performed and was negative. Dr. Winslow was notified. He recommended admission, observation and EEG. I discussed this with the patient and and they were in agreement. At this point the benefits seem to be outweighed by the risks and I did discuss this with the patient and and they agree. noTNK was administered. consultation was made with Dr. Tamir Hooks of the [facility] service. Patient was evaluated in the ER for further management. Care/management discussed with: grounds manager Level of care consideration(s): After review of the information above and other included data, I feel the patient escalation of care to admission. Triage Nursing notes: reviewed and agree them. Vital Signs: reviewed and remarkable for Hypertension Additional History obtained from: patient's . There has been no other recent illness. Patient has no facial droop. She confirms his loss of memory for this morning and notes that this is similar to the episode from 3 years ago. Chronic Medical/Social Conditions affecting care: Hypertension Prior/ Outside/ External records reviewed: none Differential Diagnosis: CVA, TIA, TGA, Infection, dehydration, metabolic abnormality, hypo/hyperglycemia, electrolyte disturbance, anemia, hypoxia, cardiac sources, intracerebral event, toxicologic, neurologic, as well as other pathologies. Diagnostics, independently interpreted by me: EC Lead ECG performed and revealed Normal sinus rhythm at 75 bpm, inferior Q waves, normal [place], QRS normal. No elevation or depression. No PACs or PVCs Cardiac Monitoring: Cardiac monitoring ordered by me: The patient was placed on continuous cardiac monitoring and observed. It revealed a normal sinus rhythm at 73 beats per minute without ectopy or evidence of dysrhythmia. Medical decision rules: none Imaging studies: Head CT: A noncontrast CT scan of the head was performed and was negative for tumor, fracture, intracranial hemorrhage, or other acute pathology. I refer you to the EMR for further details. HPI: 63 year old Male arrives for evaluation of memory loss and confusion. This started about 1 hour ago. Patient was with his . He felt confused. She notes that the patient cannot remember things from this morning. He has had an episode of TGA in 2020. She states this seems very similar. Patient has been in normal state of health up until this morning. No recent illnesses. No trauma. Pt denies LOC, headache, fevers, chills, diaphoresis, visual changes, neck pain, chest pain, breathing difficulties, nausea, vomiting, abdominal pain, back pain, melena, hematochezia, urinary symptoms, numbness, weakness, lymphadenopathy, rash, or other complaints. PAST MEDICAL HISTORY: See Below, TGA, hypertension PAST SURGICAL HISTORY: See Below, SOCIAL HISTORY: See Below, HOME MEDICATIONS: See Below ALLERGIES: See Below VITALS: See Below PHYSICAL EXAMINATION: GENERAL: Awake, alert, well-appearing, in no distress HENT: Normocephalic, atraumatic. Oropharynx unremarkable. EYES: Normal conjunctiva. Sclera non-icteric. PERRLA. EOMI. NECK: Inspection normal. Non-tender. Supple. No nuchal rigidity. FROM. No masses. RESPIRATORY: Clear to auscultation. No wheezes. No rales. Normal respiratory effort. CARDIAC: Normal rate. Normal rhythm. No murmurs. No rubs. Extremities warm and well perfused. Pulses equal. No JVD. GI: Soft, non-distended. No tenderness to palpation. No rebound or guarding. No masses. RECTAL: Deferred. MUSCULOSKELETAL: Atraumatic. Chest examination reveals no tenderness. The back is symmetrical on inspection without obvious abnormality. There is no CVA tenderness to palpation. No joint edema. LOWER EXTREMITIES: Calves are equal size bilaterally and non-tender. No edema. No discoloration. NEURO: Normal sensorium except the patient cannot remember details over the last hour prior to arrival. No sensory or motor deficits noted. Cranial nerves II through XII intact. Normal rapid alternating movements. Normal [id number]. Speech normal. SKIN: No rash or jaundice noted. PROCEDURES: none CRITICAL CARE: none OBSERVATION NOTE: none Past Med/Surg History Medical History (Updated 08/25/23 @ 15:39 by Nehemias Aviles MD) HTN (hypertension) TGA (transient global amnesia) Hypertensive urgency Stroke-like symptom Headache Acute confusional state Medical history non-contributory Family History Father , [place] at 56 and at 86 Coronary heart disease Diabetes Dyslipidemia Heart disease Hypertension Mother Diabetes Dyslipidemia Hypertension Stroke Social History Smoking Status: Never smoker Second Hand Exposure: No; Do You Dip or Chew Tobacco: No; Hx Alcohol Use: Yes Alcohol type: beer Hx Substance Use: No Preferred Language: Azeri Communication Ability: Effective Sales Rep Required: No Beliefs That Will Affect Care: Anabaptism Anabaptism Beliefs: [facility] and [facility] Current Living Situation: Spouse Feels Safe at Home: Yes Assistive Devices: None Allergies Allergies Allergy/AdvReac Type Severity Reaction Status Date / Time No Known Allergies Allergy Unverified 08/13/20 08:45 Home Meds Home Medications Medication Instructions Recorded Confirmed cetirizine 5 mg tablet 5 mg PO DAILY 08/25/23 08/25/23 lisinopril 10 mg tablet 0 mg PO QAM 08/25/23 08/25/23 multivitamin 1 tab PO DAILY 08/25/23 08/25/23 sildenafil 100 mg tablet 100 mg PO UD PRN Other 08/25/23 08/25/23 Previous Rx's Medication Instructions Recorded aspirin 81 mg tablet,delayed 81 mg PO QAM 30 days #30 tabs 08/14/20 release Results & Data (ED) Vital Signs Vital Signs - 24 hr 08/25/23 10:54 08/25/23 11:34 08/25/23 11:37 Temperature 36.6 C Temperature Source Temporal Artery Scan Pulse Rate 79 74 Pulse Rate from SpO2 Sensor 76 Respiratory Rate 20 16 14 Respiratory Effort / Characteristics Non-Labored Spontaneous Respiratory Depth Normal Blood Pressure 151/105 H 148/105 H Blood Pressure Mean 120 119 Pulse Oximetry 99 99 99 Oxygen Delivery Method Room Air Room Air Room Air Sepsis Recent Fever Within 48 Hours No Sepsis New/Unexplained Change in Mental Status N/A Sepsis Action Taken by Nursing No Action Required 08/25/23 11:45 08/25/23 11:45 08/25/23 12:00 Temperature Temperature Source Pulse Rate 72 75 77 Pulse Rate from SpO2 Sensor 73 75 Respiratory Rate 17 17 Respiratory Effort / Characteristics Respiratory Depth Blood Pressure 148/98 H 163/101 H Blood Pressure Mean 114 121 Pulse Oximetry 98 98 Oxygen Delivery Method Room Air Room Air Sepsis Recent Fever Within 48 Hours Sepsis New/Unexplained Change in Mental Status Sepsis Action Taken by Nursing 08/25/23 12:38 08/25/23 12:45 08/25/23 13:00 Temperature Temperature Source Pulse Rate 69 68 77 Pulse Rate from SpO2 Sensor 70 71 74 Respiratory Rate 19 13 15 Respiratory Effort / Characteristics Respiratory Depth Blood Pressure 139/114 H 131/86 146/83 H Blood Pressure Mean 122 101 104 Pulse Oximetry 97 99 97 Oxygen Delivery Method Room Air Room Air Room Air Sepsis Recent Fever Within 48 Hours Sepsis New/Unexplained Change in Mental Status Sepsis Action Taken by Nursing 08/25/23 13:15 08/25/23 13:30 08/25/23 13:45 Temperature Temperature Source Pulse Rate 76 74 71 Pulse Rate from SpO2 Sensor 64 75 71 Respiratory Rate 17 12 12 Respiratory Effort / Characteristics Respiratory Depth Blood Pressure 156/95 H 146/92 H 141/89 H Blood Pressure Mean 115 110 106 Pulse Oximetry 98 98 97 Oxygen Delivery Method Room Air Room Air Room Air Sepsis Recent Fever Within 48 Hours Sepsis New/Unexplained Change in Mental Status Sepsis Action Taken by Nursing 08/25/23 14:00 Temperature Temperature Source Pulse Rate 73 Pulse Rate from SpO2 Sensor 73 Respiratory Rate 13 Respiratory Effort / Characteristics Respiratory Depth Blood Pressure 144/88 H Blood Pressure Mean 106 Pulse Oximetry 99 Oxygen Delivery Method Room Air Sepsis Recent Fever Within 48 Hours Sepsis New/Unexplained Change in Mental Status Sepsis Action Taken by Nursing Laboratory Data 08/25/23 11:17 08/25/23 11:16 Lab Results 08/25/23 08/25/23 Range/Units 11:16 11:17 WBC 4.57 L (4.8-10.8) K/ul RBC 5.11 (4.70-6.10) M/uL Hgb 15.0 (14.0-18.0) g/dl Hct 44.4 (42.0-52.0) % MCV 86.9 (80.0-100.0) fL MCH 29.4 (25.0-34.0) pg MCHC 33.8 (32.0-36.0) g/dL RDW Std Deviation 44.3 (36.4-46.3) fL RDW Coeff of Manish 13.9 (11.5-14.5) % Plt Count 217 (130-400) K/uL MPV 9.4 (9.4-12.4) fL PT 11.3 (9.0-12.0) Seconds INR 1.0 (0.9-1.1) APTT 29 (21-31) Seconds PTT Ratio 1.0 Sodium 141 (136-145) mmol/L Potassium 4.5 (3.5-5.1) mmol/L Chloride 107 (98-107) mmol/L Carbon Dioxide 29 (21-32) mmol/L Anion Gap 5 (3-11) BUN 12 (6-23) mg/dl Creatinine 0.92 (0.6-1.4) mg/dl Est Cr Clr Drug Dosing 85.3 ml/min Est GFR ( Amer) 100.8 ml/min Est GFR (Non-Af Amer) 87.0 ml/min BUN/Creatinine Ratio 13.0 (10-20) Glucose 90 (70-99(Fasting)) mg/dl Calcium 9.7 (8.6-10.3) mg/dl Magnesium 2.1 (1.7-2.4) mg/dl Total Bilirubin 0.5 (0.2-1.0) mg/dl AST 24 (13-39) U/L ALT 17 (7-52) U/L Alkaline Phosphatase 113 H (34-104) U/L Total Protein 7.0 (6.0-8.3) gm/dl Albumin 4.2 (3.4-5.0) gm/dl Globulin 2.8 (2.5-4.0) gm/dl Albumin/Globulin Ratio 1.5 (0.9-2) Administered Medications Discontinued Medications Ioversol (Optiray 320 125ml) 120 ml IV ONCE ONE Stop: 08/25/23 11:15 Last Admin: 08/25/23 11:07 Dose: 120 ml Documented By: RAY Imaging Data Radiologist's Impression: Chest X-Ray 04/25/24 11:00 XR chest 1V portable CLINICAL HISTORY: stroke alert COMPARISON STUDY: Chest radiograph August 13, 2020. FINDINGS: Lung volumes are normal. Lungs are clear. There is no pneumothorax or pleural effusion. Cardiac size is normal. Mediastinal contours are normal. There is no evidence for pulmonary edema. IMPRESSION: No acute cardiopulmonary findings. ACT 112: Negative or not required by law. Electronically signed by: Juan Ortiz M.D. 08/25/2023 1:[address] 08/25/23 11:00 CT OF THE HEAD WITHOUT CONTRAST CLINICAL HISTORY: Neuro deficit, acute, stroke suspected. Confusion. COMPARISON STUDY: Head CT, CTA of the head and MRI of the brain August 13, 2020. CT DOSE: 1135.32 mGy.cm TECHNIQUE: Helical axial images of the head were obtained without IV contrast. Automated exposure control was utilized for the study. A dose lowering technique was utilized adhering to the principles of ALARA. FINDINGS: No acute intracranial hemorrhage, midline shift or mass effect is present. The ventricular system is unremarkable. The basal cisterns are patent. No extra-axial collections are present. There are no findings to suggest acute dural sinus thrombosis or acute territorial infarct. No significant calvarial abnormalities are present. A small hypodensity within the left basal ganglia is unchanged. IMPRESSION: No acute intracranial findings. ACT 112: Negative or not required by law. Electronically signed by: Juan Ortiz M.D. 08/25/2023 11:19 AM Head CTA 08/25/23 11:03 HEAD CTA HISTORY: stroke like symptoms TECHNIQUE: Multiaxial CT images of the head were performed both before and after the intravenous administration of contrast to evaluate the major cerebral vessels. 3D/MIP images were also obtained. Sagittal and coronal reformats were reviewed. A dose lowering technique was utilized adhering to the principles of ALARA. COMPARISON: None. FINDINGS: There is no mass, hematoma, midline shift, or acute infarct. Visualized intracranial internal carotid arteries, distal vertebral arteries, and basilar artery are widely patent. There is no significant stenosis, occlusion, or aneurysm seen within the bilateral ACAs, MCAs, or typewriters functional tester. The major dural venous sinuses are patent. IMPRESSION: No significant stenosis, occlusion, or aneurysm within the [place]. ACT 112: Negative or not required by law. Electronically signed by: Julio Cesar Morales M.D. 08/25/2023 12:11 PM Neck CTA 08/25/23 11:03 CT angio neck with con CLINICAL HISTORY: 63 years-old Male with stroke like symptoms. Acute strokelike symptoms COMPARISON STUDY: 08/13/2020 TECHNIQUE: Following the IV administration of 120 mL of Optiray, CT angiogram of the neck was performed from the aortic arch to the skull base. Images are reviewed in the axial, sagittal, and coronal planes. 3-D MIPS images are created and assessed. IV contrast was administered without complication. All measurements were calculated based on NASCET criteria. A dose lowering technique was utilized adhering to the principles of ALARA. FINDINGS: The imaged opacified pulmonary artery is unremarkable. Three-vessel morphology of the thoracic aortic arch. There is patency of the innominate, and imaged subclavian arteries. The common and internal carotid arteries are widely patent. No significant atherosclerotic plaque. The basilar and posterior cerebral arteries are also widely patent. No aneurysm, dissection, high-grade stenosis or proximal branch occlusion. Cerebral venous sinuses are patent. There is no abnormal intracranial enhancement. Lung apices are clear without pneumothorax. There is no adenopathy. Streak artifact from dental amalgam hardware. Degenerative changes of the cervical spine and sternal manubrial articulation. IMPRESSION:Unremarkable CTA of the neck. ACT 112: Negative or not required by law. The above report was generated using voice recognition software. It may contain grammatical, syntax or spelling errors. Electronically signed by: Lanre York M.D. 08/25/2023 12:31 PM Brain MRI 08/25/23 11:38 MRI OF THE BRAIN WITHOUT CONTRAST CLINICAL HISTORY: stroke alert, acute memory loss, TGA COMPARISON STUDY: Head CT and CTA of the head performed earlier today. TECHNIQUE: Utilizing a 1.5 Yasmeen magnet and dedicated coil, multiplanar, multiecho imaging of the brain was performed without IV contrast. FINDINGS: There are no foci of restricted diffusion to suggest acute infarct. No acute intracranial hemorrhage, midline shift or mass effect is present. Ventricular system is unremarkable. Basal cisterns are patent. There are no extra-axial collections. Flow-voids for the major intracranial vessels are present. No parenchymal signal abnormality is identified. There is minimal ethmoid sinus mucosal thickening. IMPRESSION: No acute intracranial findings. No evidence for acute infarct. ACT 112: Negative or not required by law. Electronically signed by: Juan Ortiz M.D. 08/25/2023 12:51 PM Discharge Plan Visit Data Chief Complaint: Confusion Stated Complaint: DISORIENTED,TGA HX, ED Provider: Nehemias Aviles Discharge Problem: TGA (transient global amnesia), HTN (hypertension) Forms Stand Alone Forms: [facility] [employer] Prescriptions Prescriptions: No Action aspirin 81 mg Tablet,Delayed Release (Dr/Ec) 81 mg PO QAM 30 Days Qty: 30 3RF multivitamin [Multi-Vitamin] Tablet 1 tab PO DAILY cetirizine [Zyrtec] 5 mg Tablet 5 mg PO DAILY sildenafil 100 mg tablet 100 mg PO UD PRN (Reason: Other) lisinopril 10 mg tablet 0 mg PO QAM Rx Instructions: isn't sure if this is the bp medication patient takes. Referrals Referrals: Mai Willson PA-C [Primary Care Provider] -
--- NOTE | 2023-08-25 15:56 | Electrocardiogram Report ---
Test Reason : Blood Pressure : / mmHG Vent. Rate : 075 BPM Atrial Rate : 075 BPM P-R Int : 166 ms QRS Dur : 102 ms QT Int : 386 ms P-R-T Axes : 046 -26 022 degrees QTc Int : 431 ms Normal sinus rhythm Cannot rule out Inferior infarct , age undetermined Abnormal ECG When compared with ECG of 13-AUG-2020 07:54, No significant change Confirmed by Sid Peres ([id number]) on 08/25/2023 3:56:15 PM Referred By: REFERRED SELF Confirmed By:Sid Peres
[2023-08-25] MEDS ORDERED: ACETAMINOPHEN 325 MG TAB PO PRN (17:22)
[2023-08-26 06:26] LABS: Basophils # (auto) 0.03 K/uL (0.00-0.20); Basophils % (auto) 0.5 %; Eosinophils # (auto) 0.15 K/uL (0.00-0.50); Eosinophils % (auto) 2.7 %; Hematocrit (blood only) 43.2 % (42.0-52.0); Hemoglobin 14.5 g/dl (14.0-18.0); Immature Granulocytes # (auto) 0.05 K/uL (0.01-0.20); Immature Granulocytes % (auto) 0.9 %; Lymphocytes # (auto) 1.66 K/uL (1.20-3.40); Lymphocytes % (auto) 29.7 %; Mean Corpuscular Hemoglobin 28.9 pg (25.0-34.0); Mean Corpuscular Hgb Conc 33.6 g/dL (32.0-36.0); Mean Corpuscular Volume 86.2 fL (80.0-100.0); Mean Platelet Volume 9.5 fL (9.4-12.4); Monocytes # (auto) 0.54 K/uL (0.11-0.59); Monocytes % (auto) 9.7 %; Neutrophils # (auto) 3.16 K/uL (1.40-6.50); Neutrophils % (auto) 56.5 %; Platelet Count 211 K/uL (130-400); RDW Coefficient of Variation 14.2 % (11.5-14.5); RDW Standard Deviation 44.8 fL (36.4-46.3); Red Blood Count 5.01 M/uL (4.70-6.10); White Blood Count 5.59 K/ul (4.8-10.8)
[2023-08-26 06:50] LABS: BUN Creatinine Ratio 12.4 (10-20); Calcium 8.6 mg/dl (8.6-10.3); Creatinine Clr Calc Pharmacy 80.9 ml/min; Est GFR (African American) 94.6 ml/min; Est GFR (Non-African American) 81.6 ml/min
[2023-08-26 08:26] VITALS: PULSE 58
--- NOTE | 2023-08-26 09:41 | Neurology Consultation ---
Date of Consultation August 26, 2023 Assessment & Plan (1) TGA (transient global amnesia): History of Present Illness Attending Physician: Nadeem Zayas MD History of Present Illness pt feeling well this morning. mri brain negative. similar to prior events few years ago. no new deficits. admission HPI: Prasanth is a 63-year-old male with a past medical history of TGA in 2020 who presents as a stroke alert when he was walking downtown with his and suddenly became disoriented and confused, not making sense with answers, and appeared not understand where he was. He did not have any focal neurologic deficits, no weakness/numbness/tingling, no facial droop, no expressive aphasia, no receptive aphasia. Patient was confused at where he was, and how he got there. Brain MRI showed no acute findings and no stroke, CTA of the head and neck did not show any acute findings, CT of the head was normal. Case was reviewed with telestroke neurology given that patient had no focal deficits was suspected that this was likely TGA and while TNKase was discussed ultimately felt that this was not indicated due to risk/benefit ratio with TGA being the more likely etiology, NT case was not recommended. Patient was admitted for observation. Neurology consulted. At time of bedside assessment patient's blood pressure is adequately controlled, no tachycardia, is not hypoxic. No infectious symptoms. BMP/CBC unremarkable Prasanth is seen with his Teri at the bedside. They report this episode was extremely similar to his episode in 2020. When they were walking he seemed normal, had a work meeting this morning which she was engaged in, but then when he was walking down the road suddenly became confused about where he was and could not remember the events preceding the morning. At time of hospitalist assessment he feels his memory is actually coming back to him and he can now remember his work meeting, and some of his trip to the MRI but does not remember all of the events since 71453:00 in the morning. Denies lightheadedness, dizziness, syncope, presyncope. No numbness or tingling. No focal neurologic deficits. No chest pain. No flulike symptoms, has had some allergies with a runny nose and notes that is interesting that his episode happened around the same time last year. Did discuss TNKase as noted above, he and his are in agreement that they do not feel the benefits of this for the low risk of stroke outweigh the risks, especially with this likely being a recurrent episode of TGA. No other questions or concerns at bedside. No alcohol/substance use Allergies Allergy/AdvReac Type Severity Reaction Status Date / Time No Known Allergies Allergy Unverified 08/13/20 08:45 Home Medications Medication Instructions Recorded Confirmed Type aspirin 81 mg tablet,delayed 81 mg PO QAM 30 days #30 tabs 08/14/20 08/25/23 Rx release cetirizine 5 mg tablet 5 mg PO DAILY 08/25/23 08/25/23 History lisinopril 10 mg tablet 0 mg PO QAM 08/25/23 08/25/23 History multivitamin 1 tab PO DAILY 08/25/23 08/25/23 History sildenafil 100 mg tablet 100 mg PO UD PRN Other 08/25/23 08/25/23 History Patient History Medical History HTN (hypertension) TGA (transient global amnesia) Hypertensive urgency Stroke-like symptom Headache Acute confusional state Medical history non-contributory Family History Father , [place] at 56 and at 86 Coronary heart disease Diabetes Dyslipidemia Heart disease Hypertension Mother Diabetes Dyslipidemia Hypertension Stroke Social History Smoking Status: Never smoker Second Hand Exposure: No; Do You Dip or Chew Tobacco: No; Tobacco Cessation Education Requested by Patient: No Hx Alcohol Use: Yes Alcohol type: beer and hard liquor Hx Substance Use: No Preferred Language: Lao Communication Ability: Effective Armoured [employer] Officer Required: No Beliefs That Will Affect Care: None Current Living Situation: Spouse Other Information That Helps Us Care for You: No Feels Safe at Home: Yes Safety Concerns: Feels Safe At This Time Assistive Devices: CPAP and Glasses Exam (Neuro) Physical Exam: HEENT: normocephalic Neuro: Mental: AOx4, fluent speech, normal comprehension, no apraxia, no L/R confusion, no neglect CN: PERRL, Full EOM, symmetric face, intact sensation t/o face, midline T/U/P, 5/5 SCM/traps. Motor: No abnormal movements, normal tone and bulk, 5/5 t/o bilaterally Coord: intact FNT b/l DTR: 2+ sym b/l Gait: intact per pt. Impression: 63 yo male with overall picture consistent with TGA. maybe his HTN related but i do not feel he had HTN encephalopathy as it is not too high. Recommendations: ok for discharge. strict BP monitoring. no need for further work up as pt already had extensive work up last time. f/u with PCP. Chart reviewed I have spent more than 50% educating patient about potential diagnosis and neurological evaluation and coordinating care with patient's treatment team. Total time spent (including chart review and coordination of care): 60 min (this includes chart review). Results & Data Vital Signs (Past 12 Hours) Vital Signs Temp Pulse Pulse Resp BP BP Pulse Ox 08/26/23 08:00 57 L 08/26/23 07:35 36.4 C L 58 L 17 122/81 95 08/26/23 03:33 36.6 C 140 H 20 124/79 93 08/26/23 03:07 36.5 C 58 L 18 119/75 96 08/26/23 02:01 08/26/23 02:00 120/76 08/26/23 02:00 66 17 97 08/26/23 01:27 68 08/26/23 01:00 66 18 94 08/26/23 01:00 127/80 08/26/23 00:00 128/78 08/26/23 00:00 62 14 94 08/25/23 23:06 36.9 C 71 16 134/82 94 08/25/23 23:00 134/82 08/25/23 23:00 66 19 96 08/25/23 22:00 64 14 96 08/25/23 22:00 136/80 Pulse Ox O2 Del Method O2 Del Method 08/26/23 08:00 08/26/23 07:35 Room Air 08/26/23 03:33 Room Air 08/26/23 03:07 Room Air 08/26/23 02:01 94 Room Air 08/26/23 02:00 08/26/23 02:00 08/26/23 01:27 08/26/23 01:00 08/26/23 01:00 08/26/23 00:00 08/26/23 00:00 08/25/23 23:06 Room Air 08/25/23 23:00 08/25/23 23:00 08/25/23 22:00 08/25/23 22:00 PG Care Time/CCT Total # of Minutes Spent Total Time Spent with Patient: Total time spent is greater than 50% in coordination of care (as documented) at patient's floor/unit and/or counseling patient: Coding Level of Care Code 28184 IN/OBS CONSULT LVL 4,60M Diagnoses TGA (transient global amnesia) G45.4
[2023-08-26] MEDS: MULTIVITAMIN TAB PO SCH (10:00)
[2023-08-26] MEDS: ASPIRIN 81 MG ECTAB PO SCH (10:07)
[2023-08-26 12:11] VITALS: BP 132/88; RESP 18; TEMP 97.9; O2SAT 97
--- NOTE | 2023-08-26 17:07 | Discharge Summary ---
Discharge Summary Date of Service August 26, 2023 Admission HPI Per Admitting Provider Prasanth is a 63-year-old male with a past medical history of TGA in 2020 who presents as a stroke alert when he was walking downtown with his and suddenly became disoriented and confused, not making sense with answers, and appeared not understand where he was. He did not have any focal neurologic deficits, no weakness/numbness/tingling, no facial droop, no expressive aphasia, no receptive aphasia. Patient was confused at where he was, and how he got there. Brain MRI showed no acute findings and no stroke, CTA of the head and neck did not show any acute findings, CT of the head was normal. Case was reviewed with telestroke neurology given that patient had no focal deficits was suspected that this was likely TGA and while TNKase was discussed ultimately f elt that this was not indicated due to risk/benefit ratio with TGA being the more likely etiology, NT case was not recommended. Patient was admitted for observation. Neurology consulted. At time of bedside assessment patient's blood pressure is adequately controlled, no tachycardia, is not hypoxic. No infectious symptoms. BMP/CBC unremarkable Prasanth is seen with his Teri at the bedside. They report this episode was extremely similar to his episode in 2020. When they were walking he seemed normal, had a work meeting this morning which she was engaged in, but then when he was walking down the road suddenly became confused about where he was and could not remember the events preceding the morning. At time of hospitalist assessment he feels his memory is actually coming back to him and he can now remember his work meeting, and some of his trip to the MRI but does not remember all of the events since [id number] in the morning. Denies lightheadedness, dizziness, syncope, presyncope. No numbness or tingling. No focal neurologic deficits. No chest pain. No flulike symptoms, has had some allergies with a runny nose and notes that is interesting that his episode happened around the same time last year. Did discuss TNKase as noted above, he and his are in agreement that they do not feel the benefits of this for the low risk of stroke outweigh the risks, especially with this likely being a recurrent episode of TGA. No other questions or concerns at bedside. No alcohol/substance use Medical History: Reviewed Medications: Reviewed Surgical History: Reviewed Family history: Reviewed Allergies: Reviewed Social History:Reviewed Code Status: Full Principal Dx & Hospital Course #1 = Principal Diagnosis (1) TGA (transient global amnesia): - Abrupt onset ~10am. Resolved - TNKase not recommended after initial stroke alert/eval - CT-H, CTA, MRI without acute findings - NO infectious or metabolic derangements. No hx substance or etoh use - Suspected second episode of TGA. Neurology consulted no immediate recommendations or further workup needed. Patient will follow-up with neurology as an outpatient Plan CODE Full Discharge Exam Awake alert appropriate. Patient oriented x 3. Patient with no focal deficits. Updated Medication List Medication Instructions Recorded Confirmed Type aspirin 81 mg tablet,delayed 81 mg PO QAM 30 days #30 tabs 08/14/20 08/25/23 Rx release cetirizine 5 mg tablet 5 mg PO DAILY 08/25/23 08/25/23 History lisinopril 10 mg tablet 0 mg PO QAM 08/25/23 08/25/23 History multivitamin 1 tab PO DAILY 08/25/23 08/25/23 History sildenafil 100 mg tablet 100 mg PO UD PRN Other 08/25/23 08/25/23 History Hospital Stay Data Consultations 08/25/23 17:22 Consult Neurology Routine Diagnostic Imagining Performed 08/25/23 11:00 CT head/brain wo con Stat 08/25/23 11:03 CT angio head w con Stat CT angio neck with con Stat 08/25/23 11:38 MR brain wo con Stat Pending Results Patient Have Any Pending Studies at Discharge: No Discharge Instructions Given to Patient (Per Discharging Provider) [facility] Total Time Total Time Spent Total Time Spent (In Minutes): It required less than 30 minutes to prepare this patient for discharge. Coding Level of Care Code 09349 IN/OBS DISCH 30 MIN/LESS Diagnoses TGA (transient global amnesia) G45.4
== END 2023-08-26 13:42 | disposition home or self-care (01) ==
LOC: EDINP 10:43 → ED 10:43 → SUATTDRO 14:17 → 4W 08-26 02:39
DX: Z79.82 Long term (current) use of aspirin; G45.4 Transient global amnesia; I10 Essential (primary) hypertension; Z79.899 Other long term (current) drug therapy

== ENCOUNTER 2024-04-26 11:52 | Observation (INO) ==
[2024-04-26] MEDS: OPTIRAY 320 125ml IV ONE (12:12)
[2024-04-26 12:21] LABS: iSTAT Ionized Calcium 1.22 mmol/l (1.12-1.32); iSTAT Potassium 4.2 mmol/L (3.3-5.0)
--- NOTE | 2024-04-26 12:24 | CT Scan Report ---
CT head/brain wo con CLINICAL HISTORY: 63 years-old Male with Neuro deficit, acute, stroke suspected. Acute stroke like s ymptoms TECHNIQUE: Multiple axial CT images of the head were obtained without contrast. A dose lowering tech nique was utilized adhering to the principles of ALARA. COMPARISON: CTA head of same day, brain MRI 08/25/2023 FINDINGS: No acute intracranial hemorrhage, midline shift, intracranial mass, hydrocephalus, territorial ischem ia or abnormal extra-axial collection. Minimal involutional changes. Study is mildly motion degraded. The calvarium is intact. The paranasal sinuses, mastoid air cells, and middle ear cavities are clear . IMPRESSION: No acute intracranial abnormality. ACT 112: Negative or not required by law. The above report was generated using voice recognition software. It may contain grammatical, syntax o r spelling errors. Electronically signed by: Lanre York M.D. 04/26/2024 12:23 PM
--- NOTE | 2024-04-26 12:25 | XRay Report ---
XR chest 1V portable HISTORY: 63 years-old Male stroke alert COMPARISON: Chest radiograph 08/25/2023 TECHNIQUE: AP view of the chest FINDINGS: Cardiomediastinal and hilar silhouettes are within normal limits. No pneumothorax, pleural effusion, airspace consolidation or pulmonary edema. The bones of the chest appear grossly intact. IMPRESSION: No acute process. ACT 112: Negative or not required by law. The above report was generated using voice recognition software. It may contain grammatical, syntax o r spelling errors. Electronically signed by: Lanre York M.D. 04/26/2024 12:24 PM
--- NOTE | 2024-04-26 12:27 | CT Scan Report ---
CT angio neck with con CLINICAL HISTORY: confusion TECHNIQUE: CT angiography of the neck was performed following intravenous administration of iodinated contrast. Coronal and sagittal MIPS were obtained from the axial data set and were submitted for rev iew. Automated dose lowering techniques and/or adjustment according to patient size were utilized fo r this examination. All measurements were calculated based on NASCET criteria. CT DOSE: 1017.22 mGy.cm Comparison: Comparison is made to CT cervical spine 08/25/2023 FINDINGS: Lungs and soft tissues are unremarkable. CTA Neck: A 3 vessel aortic arch is shown. There is no significant atherosclerotic plaque in the aor tic arch or the origins of the innominate, left common carotid, and left subclavian arteries. The co mmon carotid, external carotid, cervical segments of the internal carotid arteries, and the cervical segments of the vertebral arteries are patent without hemodynamically significant stenosis. The left vertebral artery is dominant. IMPRESSION: No occlusion, hemodynamically significant stenosis, or dissection in the major cervical arteries. Assessment of stenosis of the internal carotid arteries is based on NASCET criteria. ACT 112: Negative or not required by law. Electronically signed by: Nico Segundo M.D. 04/26/2024 12:25 PM
--- NOTE | 2024-04-26 12:28 | CT Scan Report ---
CT angio head w con CLINICAL HISTORY: 63 years-old Male with confusion. Acute stroke like symptoms COMPARISON STUDY: Head CT of same day, brain MRI 08/25/2023 TECHNIQUE: Following the IV administration of 120 cc of Optiray, CT angiogram of the brain was perfor med from the skull base to the vertex. Images are reviewed in the axial, sagittal, and coronal planes . 3-D MIPS images are created and assessed. IV contrast was administered without complication. All me asurements were obtained according to NASCET criteria. A dose lowering technique was utilized adherin g to the principles of ALARA. FINDINGS: CT BRAIN: Dictated separately CT ANGIOGRAM OF THE BRAIN: The imaged bilateral internal carotid arteries are patent. The bilateral anterior and middle cerebral arteries are also patent. The vertebrobasilar system and posterior cerebral arteries are widely guajardo nt. There is no aneurysm, high-grade stenosis, or proximal branch occlusion identified. Dural sinuses appear patent. IMPRESSION: Unremarkable CTA of the head. ACT 112: Negative or not required by law. The above report was generated using voice recognition software. It may contain grammatical, syntax o r spelling errors. Electronically signed by: Lanre York M.D. 04/26/2024 12:27 PM
[2024-04-26 12:29] LABS: Hemoglobin 15.4 g/dl (14.0-18.0); Mean Corpuscular Hemoglobin 31.2 pg (25.0-34.0); Mean Corpuscular Volume 89.1 fL (80.0-100.0); Mean Platelet Volume 9.4 fL (9.4-12.4); Platelet Count 196 K/uL (130-400); RDW Coefficient of Variation 12.7 % (11.5-14.5); RDW Standard Deviation 41.6 fL (36.4-46.3); Red Blood Count 4.94 M/uL (4.70-6.10); White Blood Count 4.92 K/ul (4.8-10.8)
[2024-04-26 12:46] LABS: Albumin Globulin Ratio 1.6 (0.9-2); Albumin Level 4.3 gm/dl (3.4-5.0); BUN Creatinine Ratio 10.5 (10-20); Bilirubin,Total 0.7 mg/dl (0.2-1.0); Calcium 9.5 mg/dl (8.6-10.3); Creatinine Clr Calc Pharmacy 82.6 ml/min; Globulin 2.7 gm/dl (2.5-4.0); Potassium 4.2 mmol/L (3.5-5.1)
--- NOTE | 2024-04-26 12:50 | Electrocardiogram Report ---
Test Reason : Blood Pressure : */* mmHG Vent. Rate : 81 BPM Atrial Rate : 81 BPM P-R Int : 172 ms QRS Dur : 100 ms QT Int : 372 ms P-R-T Axes : 45 -30 28 degrees QTcB Int : 432 ms Normal sinus rhythm Left axis deviation Poor R wave progression, consider anterior OH vs. lead placement vs. LVH Abnormal ECG When compared with ECG of 08-Mar-2024 14:38, No significant change was found Confirmed by Arturo Hassan ([id number]) on 04/26/2024 12:49:40 PM Referred By: REFERRED SELF Confirmed By: Arturo Hassan
--- NOTE | 2024-04-26 12:58 | Emergency Department Note ---
Impression & Plan Acute confusion, Stroke-like symptoms ED Provider Note HISTORY OF PRESENT ILLNESS: Patient is a 63-year-old male presenting with acute onset of confusion. Patient was out on a walk with his when suddenly he became acutely confused at 10:30 AM. reports he was having word finding difficulties and having difficulties identifying objects in buildings that he is normally able to. He has a history of transient global amnesia. No anticoagulation or antiplatelet use. Patient denies any chest pain or shortness of breath. No recent falls or head injury. No numbness, tingling or weakness in extremities per patient. He denies any headache or changes in vision. ROS: as above PHYSICAL EXAM: Constitutional: Patient appears in no acute distress. HENT: Head: Normocephalic and atraumatic. Eyes: EOMI, PERRL Mouth/Throat: Mucous membranes moist. Neck: Trachea midline. Neck supple. Cardiovascular: RRR, No murmurs, rubs or gallops. Intact distal pulses. Pulmonary/Chest: No respiratory distress. Breath sounds clear and equal bilaterally. No wheezes or rales. Abdominal: Abdomen soft, no tenderness, rebound or guarding. Musculoskeletal: No edema, tenderness or deformity noted. Skin: Warm and dry. No rash, erythema, pallor or cyanosis Psychiatric: Appropriate mood and affect for situation. Neurological: Alert and keenly responsive. Facies symmetric. Able to raise eyebrows, close eyes, smile, puff mouth, stick out tongue, move tongue left and right and raise palate symmetrically. Able to shrug shoulders. PERRLA. SILT to forehead below eye and at jawline. Can hear soft noise bilaterally. Good finger to nose. Strength 5/5 in bilateral upper and lower extremities. SILT throughout bilateral upper and lower extremities. No appreciable slurred speech. Patient is able to identify objects in the room. NIH stroke scale 0. MDM: - Vitals signs showed hypertension. Patient was alerted as a stroke after triage. IV access was obtained and he was taken to CT imaging. He is not on any antiplatelet or anticoagulation therapy, the did give 325 mg of aspirin prior to coming into the ER. Patient's symptom onset acutely at 10:30 AM, putting him within the window for TNK. - History obtained via patient's , given patient's amnesia. History as above. - Chronic conditions affecting care: HTN; transient global amnesia - Differential diagnoses include, but are not limited to: CVA; intracranial hemorrhage; ACS; dissection; amnesia; electrolyte abnormality - Order placed for continuous cardiac monitoring. At this time, monitor showed rate of 85 bpm with normal sinus rhythm, per my interpretation. - External medical records reviewed. Discharge summary dated10/2023 was reviewed. Patient was admitted at that time for transient global amnesia. He had abrupt onset at 10 AM for his admission. TNKase was not recommended after initial stroke alert and evaluation. - EKG interpreted by myself showed normal sinus rhythm. Rate 81 bpm. QT 372. No acute ischemic changes - CT head wo contrast negative for acute pathology - CTA head negative for acute large vessel occlusion - CTA neck negative for acute large vessel occlusion - Discussed case with teleneurologist at [facility], Dr. Dudley, at 12:32. He plans to log into the telestroke cart to evaluate the patient. He called me back at 12:53 and is concerned that this is a another episode of patient's transient global amnesia. Recommended the patient receive a baby aspirin. He states the patient is not a TNK candidate. He recommends admission for transient global amnesia workup, which is a stroke workup with an EEG. - Laboratory workup interpreted by myself showed normal WBC; stable electrolytes; normal PT/INR - Discussion was had with corrections caseworker about patient's case and need for admission - Hospitalist, Dr. Zayas, consulted for admission - Patient admitted to [facility] hospitalist service for further evaluation and management. ASSESSMENT AND PLAN: Diagnosis: acute confusion; stroke like symptoms Plan: admit Past Med/Surg History Problem List (Updated 04/26/24 @ 12:58 by Tuyet Sanders MD) Stroke-like symptoms (Acute) Acute confusion (Acute) HTN (hypertension) (Acute) TGA (transient global amnesia) (Acute) Stroke Medical History HTN (hypertension) TGA (transient global amnesia) Hypertensive urgency Stroke-like symptom Headache Acute confusional state Medical history non-contributory Family History Father , [place] at 56 and at 86 Coronary heart disease Diabetes Dyslipidemia Heart disease Hypertension Mother Diabetes Dyslipidemia Hypertension Stroke Social History Smoking Status: Never smoker Second Hand Exposure: No; Do You Dip or Chew Tobacco: No; Hx Alcohol Use: Yes Alcohol type: beer and hard liquor Hx Substance Use: No Preferred Language: Danish Communication Ability: Effective Ship Cleaner Required: No Beliefs That Will Affect Care: None Current Living Situation: Spouse Feels Safe at Home: Yes Assistive Devices: None Allergies Allergies Allergy/AdvReac Type Severity Reaction Status Date / Time No Known Allergies Allergy Unverified 03/08/24 14:45 Home Meds Home Medications Medication Instructions Recorded Confirmed cetirizine 5 mg tablet 5 mg PO DAILY 08/25/23 03/08/24 lisinopril 10 mg tablet 0 mg PO QAM 08/25/23 03/08/24 multivitamin 1 tab PO DAILY 08/25/23 03/08/24 sildenafil 100 mg tablet 100 mg PO UD PRN Other 08/25/23 03/08/24 Previous Rx's Medication Instructions Recorded aspirin 81 mg tablet,delayed 81 mg PO QAM 30 days #30 tabs 08/14/20 release Results & Data (ED) Vital Signs Vital Signs - 24 hr 04/26/24 11:55 04/26/24 12:19 04/26/24 12:20 Temperature 36.7 C Temperature Source Temporal Artery Scan Pulse Rate 70 Pulse Rate [Apical] 84 85 Respiratory Rate 18 18 17 Blood Pressure 163/89 H Blood Pressure [Left Arm] 160/94 H 162/95 H Blood Pressure Mean 113 Blood Pressure Mean [Left Arm] 116 117 Blood Pressure Position [Left Arm] Semi-fowlers Semi-fowlers Pulse Oximetry 98 99 98 Oxygen Delivery Method Room Air Room Air Room Air Sepsis Recent Fever Within 48 Hours No Sepsis New/Unexplained Change in Mental Status N/A Sepsis Action Taken by Nursing No Action Required 04/26/24 12:25 04/26/24 12:30 04/26/24 12:45 Temperature Temperature Source Pulse Rate Pulse Rate [Apical] 87 78 82 Respiratory Rate 16 19 17 Blood Pressure Blood Pressure [Left Arm] 164/96 H 161/103 H 149/94 H Blood Pressure Mean Blood Pressure Mean [Left Arm] 118 122 112 Blood Pressure Position [Left Arm] Semi-fowlers Semi-fowlers Semi-fowlers Pulse Oximetry 97 95 98 Oxygen Delivery Method Room Air Room Air Room Air Sepsis Recent Fever Within 48 Hours Sepsis New/Unexplained Change in Mental Status Sepsis Action Taken by Nursing 04/26/24 12:49 04/26/24 13:00 Temperature Temperature Source Pulse Rate 85 Pulse Rate [Apical] 77 Respiratory Rate 21 Blood Pressure Blood Pressure [Left Arm] 154/91 H Blood Pressure Mean Blood Pressure Mean [Left Arm] 112 Blood Pressure Position [Left Arm] Semi-fowlers Pulse Oximetry 97 Oxygen Delivery Method Room Air Sepsis Recent Fever Within 48 Hours Sepsis New/Unexplained Change in Mental Status Sepsis Action Taken by Nursing Laboratory Data 04/26/24 12:05 04/26/24 12:05 Lab Results 04/26/24 04/26/24 Range/Units 12:05 12:09 WBC 4.92 (4.8-10.8) K/ul RBC 4.94 (4.70-6.10) M/uL Hgb 15.4 (14.0-18.0) g/dl POC Hgb 15.0 (14.0-18.0) g/dl Hct 44.0 (42.0-52.0) % POC Hct 44 (42-52) % MCV 89.1 (80.0-100.0) fL MCH 31.2 (25.0-34.0) pg MCHC 35.0 (32.0-36.0) g/dL RDW Std Deviation 41.6 (36.4-46.3) fL RDW Coeff of Manish 12.7 (11.5-14.5) % Plt Count 196 (130-400) K/uL MPV 9.4 (9.4-12.4) fL PT 11.0 (9.0-12.0) Seconds INR 1.0 (0.9-1.1) APTT 29 (21-31) Seconds PTT Ratio 1.1 POC Sodium 140 (135-144) mmol/L Sodium 141 (136-145) mmol/L POC Potassium 4.2 (3.3-5.0) mmol/L Potassium 4.2 (3.5-5.1) mmol/L POC Chloride 102 (101-112) mmol/L Chloride 105 (98-107) mmol/L Carbon Dioxide 31 (21-32) mmol/L POC Total CO2 27 (24-31) mmol/L Anion Gap 5 (3-11) POC Anion Gap 15.0 L (16-25) mmol/L POC BUN 9 (7-18) mg/dl BUN 10 (6-23) mg/dl Creatinine 0.95 (0.6-1.4) mg/dl POC Creatinine 1.0 (0.6-1.3) mg/dl Est Cr Clr Drug Dosing 82.6 ml/min eGFR 88.83 BUN/Creatinine Ratio 10.5 (10-20) Glucose 113 H (70-99(Fasting)) mg/dl POC Glucose (other) 113 H (70-99) mg/dl Calcium 9.5 (8.6-10.3) mg/dl POC Ioniz Calcium Priscilla 1.22 (1.12-1.32) mmol/l Magnesium 2.0 (1.7-2.4) mg/dl Total Bilirubin 0.7 (0.2-1.0) mg/dl AST 21 (13-39) U/L ALT 16 (7-52) U/L Alkaline Phosphatase 107 H (34-104) U/L Total Protein 7.0 (6.0-8.3) gm/dl Albumin 4.3 (3.4-5.0) gm/dl Globulin 2.7 (2.5-4.0) gm/dl Albumin/Globulin Ratio 1.6 (0.9-2) Administered Medications Discontinued Medications Ioversol (Optiray 320 125ml) 120 ml IV ONCE ONE Stop: 04/26/24 12:12 Last Admin: 04/26/24 12:12 Dose: 120 ml Documented By: JAR Imaging Data Radiologist's Impression: Chest X-Ray 04/26/24 12:01 XR chest 1V portable HISTORY: 63 years-old Male stroke alert COMPARISON: Chest radiograph 08/25/2023 TECHNIQUE: AP view of the chest FINDINGS: Cardiomediastinal and hilar silhouettes are within normal limits. No pneumothorax, pleural effusion, airspace consolidation or pulmonary edema. The bones of the chest appear grossly intact. IMPRESSION: No acute process. ACT 112: Negative or not required by law. The above report was generated using voice recognition software. It may contain grammatical, syntax or spelling errors. Electronically signed by: Lanre York M.D. 04/26/2024 12:[address] 04/26/24 12:01 CT head/brain wo con CLINICAL HISTORY: 63 years-old Male with Neuro deficit, acute, stroke suspected. Acute stroke like symptoms TECHNIQUE: Multiple axial CT images of the head were obtained without contrast. A dose lowering technique was utilized adhering to the principles of ALARA. COMPARISON: CTA head of same day, brain MRI 08/25/2023 FINDINGS: No acute intracranial hemorrhage, midline shift, intracranial mass, hydrocephalus, territorial ischemia or abnormal extra-axial collection. Minimal involutional changes. Study is mildly motion degraded. The calvarium is intact. The paranasal sinuses, mastoid air cells, and middle ear cavities are clear. IMPRESSION: No acute intracranial abnormality. ACT 112: Negative or not required by law. The above report was generated using voice recognition software. It may contain grammatical, syntax or spelling errors. Electronically signed by: Lanre York M.D. 04/26/2024 12:23 PM Head CTA 04/26/24 12:01 CT angio head w con CLINICAL HISTORY: 63 years-old Male with confusion. Acute stroke like symptoms COMPARISON STUDY: Head CT of same day, brain MRI 08/25/2023 TECHNIQUE: Following the IV administration of 120 cc of Optiray, CT angiogram of the brain was performed from the skull base to the vertex. Images are reviewed in the axial, sagittal, and coronal planes. 3-D MIPS images are created and assessed. IV contrast was administered without complication. All measurements were obtained according to NASCET criteria. A dose lowering technique was utilized adhering to the principles of ALARA. FINDINGS: CT BRAIN: Dictated separately CT ANGIOGRAM OF THE BRAIN: The imaged bilateral internal carotid arteries are patent. The bilateral anterior and middle cerebral arteries are also patent. The vertebrobasilar system and posterior cerebral arteries are widely patent. There is no aneurysm, high-grade stenosis, or proximal branch occlusion identified. Dural sinuses appear patent. IMPRESSION: Unremarkable CTA of the head. ACT 112: Negative or not required by law. The above report was generated using voice recognition software. It may contain grammatical, syntax or spelling errors. Electronically signed by: Lanre York M.D. 04/26/2024 12:27 PM Neck CTA 04/26/24 12:01 CT angio neck with con CLINICAL HISTORY: confusion TECHNIQUE: CT angiography of the neck was performed following intravenous administration of iodinated contrast. Coronal and sagittal MIPS were obtained from the axial data set and were submitted for review. Automated dose lowering techniques and/or adjustment according to patient size were utilized for this examination. All measurements were calculated based on NASCET criteria. CT DOSE: 1017.22 mGy.cm Comparison: Comparison is made to CT cervical spine 08/25/2023 FINDINGS: Lungs and soft tissues are unremarkable. CTA Neck: A 3 vessel aortic arch is shown. There is no significant atherosclerotic plaque in the aortic arch or the origins of the innominate, left common carotid, and left subclavian arteries. The common carotid, external carotid, cervical segments of the internal carotid arteries, and the cervical segments of the vertebral arteries are patent without hemodynamically significant stenosis. The left vertebral artery is dominant. IMPRESSION: No occlusion, hemodynamically significant stenosis, or dissection in the major cervical arteries. Assessment of stenosis of the internal carotid arteries is based on NASCET criteria. ACT 112: Negative or not required by law. Electronically signed by: Nico Segundo M.D. 04/26/2024 12:25 PM Discharge Plan Visit Data Chief Complaint: Confusion Stated Complaint: CONFUSION ED Provider: Tuyet Sanders Discharge Problem: Acute confusion, Stroke-like symptoms Forms Stand Alone Forms: [employer] Prescriptions Prescriptions: No Action aspirin 81 mg Tablet,Delayed Release (Dr/Ec) 81 mg PO QAM 30 Days Qty: 30 3RF multivitamin Tablet 1 tab PO DAILY cetirizine 5 mg Tablet 5 mg PO DAILY sildenafil 100 mg tablet 100 mg PO UD PRN (Reason: Other) lisinopril 10 mg tablet 0 mg PO QAM Rx Instructions: isn't sure if this is the bp medication patient takes. Referrals Referrals: Mai Willson PA-C [Primary Care Provider] -
[2024-04-26 13:00] LABS: Partial Thromboplastin Ratio 1.1; Partial Thromboplastin Time 29 Seconds (21-31)
--- NOTE | 2024-04-26 14:53 | History & Physical Report ---
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 Patient is pending workup with an EEG although in November EEG was unremarkable MRI scan of the brain will be undertaken Last cholesterol was 139 with LDL 74 and HDL of 53 Of his questions about possible dementia medications as was mentioned in the stroke alert. Will continue aspirin and sertraline History of Present Illness Primary Care Provider: Mai Willson PA-C 63-year-old male who presents with an episode of what appears to be recurrence of transient global amnesia. He had events in 2020 and also in August 2023. The day of admission event sounds very similar to his August 2023 event where he was walking with his on campus and he she noticed that he became confused was not making sense with answers to his questions and did not appear to understand very well as although he would follow directions when she prompted him to going to the restroom etc. She brought him to the emergency department on to where he underwent a stroke alert Imaging of his brain did not show any acute injury according to Dr. Sanders the ER doctor to stroke alert provider recommended MRI of the brain and the EEG which are both ordered. Patient observed status will have recurrent neurological checks will maintain on his home medications and if need be will have neurology consult in the morning. He did have an outpatient EEG done December [address] bhagat at that time read as normal Allergies Allergy/AdvReac Type Severity Reaction Status Date / Time No Known Allergies Allergy Unverified 03/08/24 14:45 Home Medications Medication Instructions Recorded Confirmed Type aspirin 81 mg tablet,delayed 81 mg PO QAM 30 days #30 tabs 08/14/20 03/08/24 Rx release cetirizine 5 mg tablet 5 mg PO DAILY 08/25/23 03/08/24 History lisinopril 10 mg tablet 0 mg PO QAM 08/25/23 03/08/24 History multivitamin 1 tab PO DAILY 08/25/23 03/08/24 History sildenafil 100 mg tablet 100 mg PO UD PRN Other 08/25/23 03/08/24 History Past Med/Surg History Problem List (Updated 04/26/24 @ 12:58 by Tuyet Sanders MD) Stroke-like symptoms (Acute) Acute confusion (Acute) HTN (hypertension) (Acute) TGA (transient global amnesia) (Acute) Stroke Medical History HTN (hypertension) TGA (transient global amnesia) Hypertensive urgency Stroke-like symptom Headache Acute confusional state Medical history non-contributory Family History Father , [place] at 56 and at 86 Coronary heart disease Diabetes Dyslipidemia Heart disease Hypertension Mother Diabetes Dyslipidemia Hypertension Stroke Social History Smoking Status: Never smoker Second Hand Exposure: No; Do You Dip or Chew Tobacco: No; Hx Alcohol Use: Yes Alcohol type: beer and hard liquor Hx Substance Use: No Preferred Language: [place] Communication Ability: Effective Executive Vp Required: No Beliefs That Will Affect Care: None Current Living Situation: Spouse Feels Safe at Home: Yes Assistive Devices: None Physical Exam Physical Exam: Patient awake alert surrounded by family deftly does not have recollection of the events of today. He however does know his April he thinks is (this ) he has no focal neurological deficit and has no other physical limitations or constraints Results & Data Results & Data Vital Signs (Past 12 Hours) Vital Signs Temp Pulse Pulse Resp BP BP Pulse Ox 04/26/24 13:30 74 19 140/97 97 04/26/24 13:00 77 21 154/91 H 97 04/26/24 12:49 85 04/26/24 12:45 82 17 149/94 H 98 04/26/24 12:30 78 19 161/103 H 95 04/26/24 12:25 87 16 164/96 H 97 04/26/24 12:20 85 17 162/95 H 98 04/26/24 12:19 84 18 160/94 H 99 04/26/24 11:55 98.1 F 70 18 163/89 H 98 O2 Del Method 04/26/24 13:30 Room Air 04/26/24 13:00 Room Air 04/26/24 12:49 04/26/24 12:45 Room Air 04/26/24 12:30 Room Air 04/26/24 12:25 Room Air 04/26/24 12:20 Room Air 04/26/24 12:19 Room Air 04/26/24 11:55 Room Air Diagnostic Findings Reviewed CBC reviewed chemistry reviewed CT scans Updated at bedside Code Status & VTE Plan VTE Prophylaxis Plan VTE Prophylaxis will be ordered: Yes PG Care Time/CCT Total # of Minutes Spent Total Time Spent with Patient: Total time spent is greater than 50% in coordination of care (as documented) at patient's floor/unit and/or counseling patient: Coding Level of Care Code 41798 INT INP/OBS CARE 2/55MIN Diagnoses TGA (transient global amnesia) G45.4
[2024-04-26] MEDS ORDERED: ACETAMINOPHEN 325 MG TAB PO PRN (15:45)
[2024-04-26] MEDS ORDERED: ALUMINUM/MAGNESIUM SUSP 30 ML UDC PO PRN (15:45)
[2024-04-26] MEDS ORDERED: ONDANSETRON INJ 2 MG/ML 2 ML VIAL IV PRN (15:45)
--- NOTE | 2024-04-26 20:53 | Magnetic Resonance Report ---
Exam(s): MRI HEAD Without Contrast EXAM: MR Head Without Intravenous Contrast CLINICAL HISTORY: Reason for exam: transient global amnesia. TECHNIQUE: Magnetic resonance images of the head/brain without intravenous contrast in multiple planes. COMPARISON: No relevant prior studies available. FINDINGS: Brain: Unremarkable. No mass. No hemorrhage. No acute infarct. Ventricles: Unremarkable. No ventriculomegaly. Bones/joints: Unremarkable. No acute fracture. Sinuses: Unremarkable as visualized. No acute sinusitis. Mastoid air cells: Unremarkable as visualized. No mastoid effusion. Orbits: Unremarkable as visualized. IMPRESSION: Normal head/brain MRI. Electronically signed by: Migue Pinon MD 04/26/24 20:52 PM
[2024-04-27 06:59] LABS: Hematocrit (blood only) 42.1 % (42.0-52.0); Hemoglobin 14.9 g/dl (14.0-18.0); Mean Corpuscular Hemoglobin 31.5 pg (25.0-34.0); Mean Corpuscular Hgb Conc 35.4 g/dL (32.0-36.0); Mean Platelet Volume 9.7 fL (9.4-12.4); Platelet Count 195 K/uL (130-400); RDW Coefficient of Variation 12.8 % (11.5-14.5); RDW Standard Deviation 41.5 fL (36.4-46.3); Red Blood Count 4.73 M/uL (4.70-6.10)
--- NOTE | 2024-04-27 07:13 | Hospitalist Progress Note ---
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 Patient is pending workup with an EEG although in November EEG was unremarkable MRI scan of the brain unremarkable 04/26/24 CT head CTA head neck unremarkable Last cholesterol was 139 with LDL 74 and HDL of 53 questions about possible dementia medications Will continue aspirin and sertraline Admission and Anticipated Discharge Date Admission Date: April 26, 2024 Results & Data Results & Data Vital Signs (Past 12 Hours) Vital Signs Temp Pulse Pulse Resp BP Pulse Ox O2 Del Method 04/27/24 03:04 97.7 F 65 18 115/78 96 Room Air 04/26/24 23:09 98.4 F 58 L 18 110/65 96 Room Air 04/26/24 21:43 63 04/26/24 19:33 98.6 F 79 18 135/80 95 Room Air PG Care Time/CCT Total # of Minutes Spent Total Time Spent with Patient: Total time spent is greater than 50% in coordination of care (as documented) at patient's floor/unit and/or counseling patient: Coding Diagnoses TGA (transient global amnesia) G45.4
[2024-04-27 07:24] LABS: Albumin Globulin Ratio 1.5 (0.9-2); Albumin Level 3.7 gm/dl (3.4-5.0); BUN Creatinine Ratio 12.4 (10-20); Bilirubin,Total 0.8 mg/dl (0.2-1.0); Creatinine Clr Calc Pharmacy 88.1 ml/min; Globulin 2.5 gm/dl (2.5-4.0); Magnesium 2.1 mg/dl (1.7-2.4); Potassium 3.9 mmol/L (3.5-5.1); Total Protein 6.2 gm/dl (6.0-8.3)
[2024-04-27] MEDS: MULTIVITAMIN TAB PO SCH (08:46)
[2024-04-27] MEDS: CETIRIZINE HCL 10 MG TABLET PO SCH (08:46)
[2024-04-27] MEDS: lisinopril 10 MG TAB PO SCH (08:46)
[2024-04-27] MEDS: ASPIRIN 81 MG ECTAB PO SCH (08:46)
[2024-04-27 11:10] VITALS: RESP 18; TEMP 98.1; O2SAT 97
--- NOTE | 2024-04-27 12:03 | Electroencephalogram ---
EEG Procedure Note Date of Service April 27, 2024 Start / End Times Start Time: 1127 End Time: [address] Zayas History 63-year-old with history of episode of memory loss (called transient global amnesia but this is his third event). Home Medication List Medication Instructions Recorded Confirmed Type aspirin 81 mg tablet,delayed 81 mg PO QAM 30 days #30 tabs 08/14/20 04/26/24 Rx release cetirizine 5 mg tablet 5 mg PO DAILY 08/25/23 04/26/24 History lisinopril 10 mg tablet 10 mg PO QAM 08/25/23 04/26/24 History multivitamin 1 tab PO DAILY 08/25/23 04/26/24 History sildenafil 100 mg tablet 100 mg PO UD PRN Other 08/25/23 04/26/24 History ascorbic acid (vitamin C) 500 mg 500 mg PO DAILY 04/26/24 04/26/24 History tablet (Vitamin C) ferrous gluconate 324 mg (37.5 mg 324 mg PO DAILY 04/26/24 04/26/24 History iron) tablet Inpatient Medication List Aspirin (Aspirin 81 Mg Ectab) 81 mg PO QAM [facility] Stop: 05/27/24 08:59 Last Admin: 04/27/24 08:46 Dose: 81 mg Documented By: CINDY Cetirizine HCl (Cetirizine Hcl 10 Mg Tablet) 5 mg PO DAILY [facility] Stop: 05/27/24 08:59 Last Admin: 04/27/24 08:46 Dose: 5 mg Documented By: CINDY Lisinopril (Lisinopril 10 Mg Tab) 10 mg PO QAM [facility] Stop: 05/27/24 08:59 Last Admin: 04/27/24 08:46 Dose: 10 mg Documented By: CINDY Multivitamins (Multivitamin Tab) 1 tab PO DAILY [facility] Stop: 05/27/24 08:59 Last Admin: 04/27/24 08:46 Dose: 1 tab Documented By: CINDY Discontinued Medications Ioversol (Optiray 320 125ml) 120 ml IV ONCE ONE Stop: 04/26/24 12:12 Last Admin: 04/26/24 12:12 Dose: 120 ml Documented By: MACKENZIE Description This is a 21 electrode EEG with a single channel dedicated to limited EKG. The electrodes were placed in accordance with the International 10-20 system. Interpretation The predominant background activity consists of a fairly well modulated 9 Hz activity, of up to 40 mV in amplitude,seen symmetrically distributed over the posterior head regions bilaterally, spreading anteriorly. This activity attenuates with eye-opening and other alerting procedures. Photic stimulation was performed and elicited no change in the background activity and no abnormal responses were seen. Hyperventilation was not performed. A minimal amount of muscle and movement artifact activity contaminated the recording and did not hinder interpretation to any significant degree. Throughout the waking portion of the recording, no focal abnormalities, abnormal slow activity, or potentially epileptogenic discharges were seen. The patient entered the drowsy state intermittently with no further activation. In summary, this EEG was normal during wakefulness and drowsy. No focal abnormalities, potentially epileptogenic discharges, or abnormal slow activity were seen. Clinical Correlation The abscence of potentially epileptogenic activity does not exclude a seizure disorder, since interictally, EEGs can be normal. Clinical correlation is required. [facility] EEG Procedure Codes Indication for Procedure (1) Stroke-like symptoms: (2) TGA (transient global amnesia): Neurology Neurology: 28992 EEG include record awake & drowsy
[2024-04-27 12:57] VITALS: BP 156/93; PULSE 63
--- NOTE | 2024-04-27 15:32 | Discharge Summary ---
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 December 2023 EEG was unremarkable MRI scan of the brain unremarkable 04/26/24 CT head CTA head neck unremarkable Last cholesterol was 139 with LDL 74 and HDL of 53 EEG here in the hospital during this admission is unremarkable discussed with the family possible instituting Lamictal for possible absence seizure's or verapamil for cerebral artery vasospasm after discussion they wish to have gil chful waiting and may be consider a referral to a tertiary center within the [place] system or private to get further advice about the transient global amnesia Will continue aspirin and sertraline Admission HPI Per Admitting Provider 63-year-old male who presents with an episode of what appears to be recurrence of transient global amnesia. He had events in 2020 and also in August 2023. The day of admission event sounds very similar to his August 2023 event where he was walking with his on campus and he she noticed that he became confused was not making sense with answers to his questions and did not appear to understand very well as although he would follow directions when she prompted him to going to the restroom etc. She brought him to the emergency department on to where he underwent a stroke alert Imaging of his brain did not show any acute injury according to Dr. Sanders the ER doctor to stroke alert provider recommended MRI of the brain and the EEG which are both ordered. Patient observed status will have recurrent neurological checks will maintain on his home medications and if need be will whiting ve neurology consult in the morning. He did have an outpatient EEG done December [address] bhagat at that time read as normal Discharge Exam Patient recalls events of yesterday reculture conversation has no focal neurological deficits his is present at bedside he is able to be discharged home Discharge Plan Discharge Items Patient Disposition: Home - Self-Care Reason For Visit: TRANSIENT GLOBAL AMNESIA Discharge Diagnosis: transient global anmesia Activity: Resume your previous activity Non-emergency contact: Primary Care Provider and Neurologist Call non-emergency contact if: your symptoms worsen Follow-up/Referrals: Mai Willson PA-C [Primary Care Provider] - Diet: Regular Addtl Attending Provider Instructions: Transient Global Amnesia (TGA): Care Instructions Overview Transient global amnesia (TGA) is a rare type of amnesia that causes sudden memory loss. When this happens you cannot remember events from your recent past or make new memories. You may also not know where you are, why you are there, or what the date is. You may ask the same question many times. Unlike other types of amnesia, you do know who you are and you can recognize people that you know. An episode usually does not last more than 6 hours and it rarely happens again. What causes TGA is not fully known. But, in some cases, an intense workout, sex, or stress may cause an episode. People who get migraines are more likely to have TGA. Your doctor probably did an exam and ran some tests to rule out certain health problems that can also cause sudden memory loss, such as a stroke, brain tumour, seizure, head injury, or an infection. If your doctor did not find any of these things to be the cause of your memory loss, you will not need treatment and you can go back to your usual activities. Although you may never be able to remember what happened right before or during the episode, the rest of your memory should come back. TGA does not increase the chance that you will have a stroke or seizures in the future. Follow-up care is a elder part of your treatment and safety.Be sure to make and go to all appointments, and call your doctor or nurse advice line if you are having problems. It is also a good idea to know your test results and keep a list of the medicines you take. How can you care for yourself at home? There is no treatment for TGA. Expect your symptoms to go away with time.Take good care of yourself. Eat a healthy diet. Get plenty of rest. Limit how much alcohol you drink. Do not smoke. When should you call for help? [id number] you think you may need emergency care. For example, call if: You passed out (lost consciousness).You have symptoms of a stroke. These may include: Sudden numbness, tingling, weakness, or loss of movement in your face, arm, or leg, especially on only one side of your body. Sudden vision changes. Sudden trouble speaking. Sudden confusion or trouble understanding simple statements. Sudden problems with walking or balance. A sudden, severe headache that is different from past headaches.You develop a fever with a stiff neck or a severe headache.You do not know who you are or where you are. Call your doctor or nurse advice line nowor seek immediate medical care if: You suddenly lose your memory again.You have a seizure.You are dizzy.You are more confused, forgetful, or upset than usual.You notice changes in your behaviour or personality.You begin to have trouble with familiar things, such as how to read or how to tell time. Watch closely for changes in your health, and be sure to contact your doctor or nurse advice line if you have any problems. Pending Studies at Discharge: No Stand-Alone Forms: My [facility] S&T, Smoking Cessation Medications and DC Order Prescriptions: Continued aspirin 81 mg Tablet,Delayed Release (Dr/Ec) 81 mg PO QAM 30 Days Qty: 30 3RF multivitamin Tablet 1 tab PO DAILY cetirizine 5 mg Tablet 5 mg PO DAILY sildenafil 100 mg tablet 100 mg PO UD PRN (Reason: Other) lisinopril 10 mg tablet 10 mg PO QAM Rx Instructions: isn't sure if this is the bp medication patient takes. ascorbic acid (vitamin C) [Vitamin C] 500 mg Tablet 500 mg PO DAILY ferrous gluconate 324 mg (37.5 mg iron) Tablet 324 mg PO DAILY Discharge Orders: Discharge Order (Routine); Ordered 04/27/24 Ordered By: Nadeem Zayas Admission Data Admit Date/Time: 04/26/24 14:47 Attending Provider: Nadeem Zayas Admit Provider: Nadeem Zayas Primary Care Provider: Mai Willson Other Providers: Nadeem Zayas; [facility] Other Interventions: Discharge Summary Assessment (RN) Last Done: 04/27/24 12:55 Hospital Stay Data Consultations 04/26/24 13:12 ED Decision to Admit Stat Diagnostic Imagining Performed 04/26/24 12:01 CT head/brain wo con Stat CTA head w con [CT angio head w con] Stat CTA neck with con [CT angio neck with con] Stat 04/26/24 15:45 MRI Brain [MR brain wo con] Routine Pending Results Patient Have Any Pending Studies at Discharge: No Discharge Instructions Given to Patient (Per Discharging Provider) Transient Global Amnesia (TGA): Care Instructions Overview Transient global amnesia (TGA) is a rare type of amnesia that causes sudden memory loss. When this happens you cannot remember events from your recent past or make new memories. You may also not know where you are, why you are there, or what the date is. You may ask the same question many times. Unlike other types of amnesia, you do know who you are and you can recognize people that you know. An episode usually does not last more than 6 hours and it rarely happens again. What causes TGA is not fully known. But, in some cases, an intense workout, sex, or stress may cause an episode. People who get migraines are more likely to have TGA. Your doctor probably did an exam and ran some tests to rule out certain health problems that can also cause sudden memory loss, such as a stroke, brain tumour, seizure, head injury, or an infection. If your doctor did not find any of these things to be the cause of your memory loss, you will not need treatment and you can go back to your usual activities. Although you may never be able to remember what happened right before or during the episode, the rest of your memory should come back. TGA does not increase the chance that you will have a stroke or seizures in the future. Follow-up care is a elder part of your treatment and safety.Be sure to make and go to all appointments, and call your doctor or nurse advice line if you are having problems. It is also a good idea to know your test results and keep a list of the medicines you take. How can you care for yourself at home? There is no treatment for TGA. Expect your symptoms to go away with time.Take good care of yourself. Eat a healthy diet. Get plenty of rest. Limit how much alcohol you drink. Do not smoke. When should you call for help? [id number] you think you may need emergency care. For example, call if: You passed out (lost consciousness).You have symptoms of a stroke. These may include: Sudden numbness, tingling, weakness, or loss of movement in your face, arm, or leg, especially on only one side of your body. Sudden vision changes. Sudden trouble speaking. Sudden confusion or trouble understanding simple statements. Sudden problems with walking or balance. A sudden, severe headache that is different from past headaches.You develop a fever with a stiff neck or a severe headache.You do not know who you are or where you are. Call your doctor or nurse advice line nowor seek immediate medical care if: You suddenly lose your memory again.You have a seizure.You are dizzy.You are more confused, forgetful, or upset than usual.You notice changes in your behaviour or personality.You begin to have trouble with familiar things, such as how to read or how to tell time. Watch closely for changes in your health, and be sure to contact your doctor or nurse advice line if you have any problems. Total Time Total Time Spent Total Time Spent (In Minutes): It required greater than 30 minutes to prepare this patient for discharge, of the 30 minutes 15 minutes were spent at bedside counseling with this patient regarding medications and possible interventions prior to discharge Coding Level of Care Code 52751 INP/OBS DISCH >30 MIN Diagnoses TGA (transient global amnesia) G45.4
== END 2024-04-27 13:29 | disposition home or self-care (01) ==
LOC: ED 11:52 → 2E 11:52